=== PATIENT | male | born 1955 | race African-American/Black ===

== ENCOUNTER 2017-11-07 04:20 | Inpatient (IN) | payer MEDICARE, OTHER ==
[2017-11-07 05:53] LABS: #Basophils 0.1 thou/uL (0.0-0.2); #Eosinphils 0.4 thou/uL (0.0-0.7); #Lymphocytes 1.4 thou/uL (1.20-3.40); #Monocytes 0.8 thou/uL (0.11-0.59); #Neutrophils 4.4 thou/uL (1.40-6.50); %Basophils 0.9 % (0.0-1.0); %Eosinophils 5.2 % (0.0-10.0); %Lymphocytes 20.1 % (21.0-51.0); %Monocytes 11.4 % (0.0-10.0); %Neutrophils 62.4 % (42.0-75.0); Hemoglobin 13.7 g/dL (14.0-18.0); Mean Corpuscular HGB CONC 32.5 g/dL (32.0-36.0); Mean Corpuscular Hemoglobin 28.3 pg (27.0-31.0); Mean Corpuscular Volume 86.9 fl (80.0-94.0); Mean Platelet Volume 8.6 fL (7.4-10.4); Platelet Count 218 thou/uL (130-400); RBC Distribution Width 12.5 % (11.5-14.5); Red Blood Cell (RBC) Count 4.83 mill/uL (4.70-6.10)
[2017-11-07 06:06] LABS: ALT (SGPT) 21 U/L (8-55); AST (SGOT) 18 U/L (5-34); Albumin 4.2 g/dL (3.4-4.8); Alkaline Phosphatase 84 U/L (40-150); Anion Gap 13 mmol/L (10-20); BUN (Urea Nitrogen) 19 mg/dL (8.4-25.7); Bilirubin, Total 0.2 mg/dL (0.2-1.2); Calc. Creatinine Clearance 0 mL/min (70-130); Calcium 9.2 mg/dL (7.8-10.44); Carbon Dioxide 23 mmol/L (23-31); Chloride 106 mmol/L (98-107); Estimated GFR-MDRD 76; Globulin 3.3 g/dL (2.4-3.5); Glucose 115 mg/dL (80-115); Potassium 4.3 mmol/L (3.5-5.1); Protein, Total 7.5 g/dL (5.8-8.1); Sodium 138 mmol/L (136-145)
[2017-11-07] MEDS ORDERED: methylPREDNISolone Sod Succ/PF 125 MG/2 ML VIAL ONE (06:40)
[2017-11-07 06:41] LABS: CKMB 2.4 ng/mL (0-6.6); Troponin I Less than 0.010 ng/mL (< 0.028)
[2017-11-07] MEDS ORDERED: Azithromycin 500 MG VIAL ONE (08:33)
[2017-11-07] MEDS ORDERED: cefTRIAXone\\ROCEPHIN 2 GM in Sodium Chloride 0.9% 100 ML IVPB SCH (09:00)
--- NOTE | 2017-11-07 09:23 | CT ---
PRELIMINARY REPORT/[facility]/EMERGENCY AFTER HOURS PROCEDURE: EXAM: CT Angiography Chest With Intravenous Contrast CLINICAL HISTORY: 62 years old, male; Signs and symptoms; Dyspnea and shortness of breath; Patient HX: M62 presents to ed C/O SOB, chest tightness and wheezing x4 days. Pt reports HX of these symptoms before but it's bee n a long time. Pt reports chills, myalgias, and sinus pain. Pmhx includes asthma, dm, HTN, and hypoth yroidism. TECHNIQUE: Axial computed tomographic angiography images of the chest with intravenous contrast using pulmonary embolism protocol. COMPARISON: No relevant prior studies available. FINDINGS: Pulmonary arteries: Basilar motion artifact more prominent on the left. No discrete pulmonary embolus identified. Aorta: No acute findings. No thoracic aortic aneurysm. Lungs: Mild bronchial wall thickening and scattered bronchiolar mucous plugging in the left lung and minimally in the right lower lobe. Few patchy ground glass opacities in the left upper lobe. Hazy pallavi undglass and reticulonodular densities in the superior segment of the right lower lobe. No mass or co nsolidation. Pleural space: No significant effusion. No pneumothorax. Heart: Unremarkable. Bones/joints: No acute fracture. No dislocation. Soft tissues: Unremarkable. Lymph nodes: Multiple subcentimeter bilateral hilar and few mediastinal lymph nodes. IMPRESSION: Findings suggestive of bronchial inflammation with reticulonodular infiltrate in the right lower lobe . Thank you for allowing us to participate in the care of your patient. Dictated and Authenticated by: Rancho Horne MD 11/07/2017 7:53 AM Central Time ([place] & [place]) FINAL REPORT EMERGENCY AFTER HOURS CT ANGIOGRAM THORAX WITH IV CONTRAST AND 3D RECONSTRUCTIONS: Date: 11/07/17 HISTORY: Dyspnea and shortness of breath. Chest tightness and wheezing for 4 days. Patient also reports chills and myalgias. Past medical history of asthma and hypertension. IMPRESSION: 1. No CT evidence of a pulmonary embolus. 2. Reticulonodular opacities in the right lower lobe, which may be related to infectious or inflamma tory process. 3. Lymphadenopathy in the right hilar region which may be reactive in origin. 4. Emphysematous changes right lung apex with probable mild pleural and parenchymal scarring in the left upper lobe anteriorly. 5. Minimal ground-glass densities in the left upper lobe, which also could be related to infectious or inflammatory process. Findings are in agreement with the preliminary report by Solomon. POS: [facility]
--- NOTE | 2017-11-07 09:31 | RAD ---
PORTABLE AP CHEST: Date: 11/07/17 HISTORY: Congestion for 2 days and cough. COMPARISON: 04/13/17. FINDINGS: Cardiac silhouette and pulmonary vasculature are within normal limits. The lungs are clear. There has been no interval change from the prior study. IMPRESSION: No acute cardiopulmonary process. POS: [facility]
[2017-11-07] MEDS ORDERED: Acetaminophen 325 MG TAB PO PRN ×2 (10:24→14:55)
[2017-11-07] MEDS ORDERED: Ondansetron ODT 4 MG TAB SL PRN (10:24)
[2017-11-07] MEDS ORDERED: Ondansetron HCl/PF 4 MG/2 ML Vial IVP PRN (10:24)
[2017-11-07 10:29] VITALS: BMI 31.6
[2017-11-07] MEDS ORDERED: Dextrose 50% Abboject 50 ML SYRINGE SLOW IVP PRN (14:55)
[2017-11-07] MEDS ORDERED: Senokot 8.6 MG TAB PO PRN (14:55)
[2017-11-07] MEDS ORDERED: Guaifenesin DM 100-10/5 ML UDCUP PO PRN (14:55)
[2017-11-07] MEDS ORDERED: HumaLOG 300 UNITS/3 ML VIAL SC PRN ×2 (14:55)
[2017-11-07] MEDS ORDERED: traMADol HCl 50 MG TAB PO PRN (14:55)
[2017-11-07] MEDS ORDERED: Dextrose 5% in Water 1,000 ML IV PRN (14:55)
[2017-11-07] MEDS: metFORMIN 500 MG TAB PO SCH (16:31)
[2017-11-07] MEDS ORDERED: ISOVUE-370 76%-LOCM 1 ML ONE (16:45)
--- NOTE | 2017-11-07 16:48 | HP ---
REASON FOR ADMISSION: Pneumonia, acute respiratory failure with hypoxia on arrival. HISTORY OF PRESENT ILLNESS: The patient gives history of feeling congested from last 2-1/2 days. He has had dry coughing spells with no sputum production as well. No fever at home. He has not taken his flu shot for this year. The patient thinks that his [id number]-rjn had some viral symptoms inclu ding cough, sneezing, runny nose when he visited him recently. His is also getting sick at home . He has a history of asthma and uses inhaler once a week barely. No complaints of chest pain or pa lpitations. CURRENT MEDICATIONS: Lisinopril 2.5 mg p.o. daily, metformin 1000 mg p.o. twice daily, levothyroxine daily. ALLERGIES: No known drug allergies. PAST MEDICAL AND SURGICAL HISTORY: History of diabetes mellitus type 2, asthma, hypertension, spine surgery, left hip replacement. PERSONAL HISTORY: Quit smoking 4 years back, prior to which has smoked half pack a day for nearly 15 years. Does not abuse alcohol or drugs. Lives with his . FAMILY HISTORY: Mother at the age of 90 years, has been healthy, of old age. Father at the age of 73 years. He has had history of asthma and [place]. REVIEW OF SYSTEMS: The following complete review of systems was negative, unless otherwise mentioned in the HPI or below: Constitutional: Weight loss or gain, ability to conduct usual activities. Sk in: Rash, itching. Eyes: Double vision, pain. ENT/Mouth: Nose bleeding, neck stiffness, pain, te nderness. Cardiovascular: Palpitations, dyspnea on exertion, orthopnea. Respiratory: Shortness of breath, wheezing, cough, hemoptysis, fever or night sweats. Gastrointestinal: Poor appetite, abdom inal pain, heartburn, nausea, vomiting, constipation, or diarrhea. Genitourinary: Urgency, frequenc y, dysuria, nocturia. Musculoskeletal: Pain, swelling. Neurologic/Psychiatric: Anxiety, depressio n. Allergy/Immunologic: Skin rash, bleeding tendency. PHYSICAL EXAMINATION: GENERAL: The patient is a 62-year-old male who is currently not in any acute distress. VITAL SIGNS: On arrival, blood pressure 146/76, pulse 90 per minute, respiratory rate 22 per minute, temperature 98.7 degrees Fahrenheit, saturating 90% on room air and 92% on 3 liters nasal cannula. NECK: Supple. No elevated JVD. HEENT: Extraocular muscles intact. Pupils reacting to light. Oral cavity mucous membranes are mois t. No exudates or congestion. CARDIOVASCULAR: S1, S2 heard. RESPIRATORY: Air entry 2+ bilateral. Scattered rhonchi plus bilateral, wheezes plus bilaterally. ABDOMEN: Soft, bowel sounds heard. No tenderness, rigidity or guarding. EXTREMITIES: No peripheral edema or calf tenderness. VASCULAR: Peripheral pulses 1+ bilateral. No ischemic ulcerations or gangrene. CENTRAL NERVOUS SYSTEM: No gross focal deficits seen. The patient is alert, awake, oriented x3. PSYCHIATRIC: The patient's mood is euthymic. No hallucinations or delusions. LABORATORY AND X-RAY FINDINGS: CT angio chest done showed no evidence of PE. There are reticulonodu lar opacities seen in right lower lobe. There were also emphysematous changes seen in the right lung apex with likely scarring of left upper lobe anteriorly. There are also minimal ground glass densit ies seen in the left upper lobe, which could reflect an infectious or inflammatory process. Electrol ytes are stable. BUN 19, creatinine 1.1, glucose 115. Liver enzymes are within normal limits. One set of cardiac enzymes were negative. Albumin is 4.2. White count of 7, H and H 13 and 42, platelet count 218 with 62% neutrophils, MCV is 86. EKG done shows normal sinus rhythm at 88 beats per minut e. There is also left anterior fascicular block seen. CLINICAL IMPRESSION AND PLAN: The patient will be admitted to medical floor for pneumonia, asthma ex acerbation, acute respiratory failure with hypoxia. The patient will be on DuoNeb q.6 hourly, Levaqu in 750 mg daily. We will obtain a viral PCR for respiratory pathogens. We will continue his metform in at 500 mg twice daily, lisinopril 2.5 mg daily, Synthroid as before. We will also place him on Ta miflu in view of his viral prodrome that initiated this current flareup of his asthma and pneumonia. We will continue to closely monitor him on medical floor.
[2017-11-07] MEDS ORDERED: Oseltamivir 75 MG CAP PO SCH (21:00)
[2017-11-07] MEDS: Famotidine 20 MG TAB PO SCH (22:03)
[2017-11-08 04:51] LABS: #Eosinphils 0.1 thou/uL (0.0-0.7); #Lymphocytes 2.1 thou/uL (1.20-3.40); #Monocytes 1.2 thou/uL (0.11-0.59); #Neutrophils 6.7 thou/uL (1.40-6.50); %Basophils 0.1 % (0.0-1.0); %Eosinophils 0.9 % (0.0-10.0); %Lymphocytes 20.9 % (21.0-51.0); %Monocytes 12.1 % (0.0-10.0); %Neutrophils 65.9 % (42.0-75.0); Hemoglobin 12.8 g/dL (14.0-18.0); Mean Corpuscular HGB CONC 32.8 g/dL (32.0-36.0); Mean Corpuscular Hemoglobin 28.6 pg (27.0-31.0); Mean Corpuscular Volume 87.4 fl (80.0-94.0); Mean Platelet Volume 8.1 fL (7.4-10.4); Platelet Count 202 thou/uL (130-400); RBC Distribution Width 12.5 % (11.5-14.5); Red Blood Cell (RBC) Count 4.46 mill/uL (4.70-6.10); White Blood Cell (WBC) Count 10.1 thou/uL (4.8-10.8)
[2017-11-08 05:10] LABS: Anion Gap 12 mmol/L (10-20); BUN (Urea Nitrogen) 14 mg/dL (8.4-25.7); Calc. Creatinine Clearance 140 mL/min (70-130); Calcium 9.6 mg/dL (7.8-10.44); Carbon Dioxide 27 mmol/L (23-31); Chloride 103 mmol/L (98-107); Estimated GFR-MDRD Greater than 90; Glucose 122 mg/dL (80-115); Potassium 3.7 mmol/L (3.5-5.1); Sodium 138 mmol/L (136-145)
[2017-11-08] MEDS: Levothyroxine Sodium 100 MCG TAB PO SCH (05:57)
[2017-11-08] MEDS: Famotidine 20 MG TAB PO SCH ×2 (09:19→20:55)
[2017-11-08] MEDS: metFORMIN 500 MG TAB PO SCH ×2 (09:19→17:21)
[2017-11-08] MEDS: Lisinopril 2.5 MG TAB PO SCH (09:20)
[2017-11-08] MEDS: Enoxaparin Sodium 40 MG/0.4 ML SYRINGE SC SCH (09:20)
--- NOTE | 2017-11-08 11:55 | PDOC.PN ---
- Subjective Encounter Start Date: 11/08/17 Encounter Start Time: 08:25 Subjective: breathing better, no sob - Objective Resuscitation Status: Resuscitation Status FULL:Full Resuscitation MAR Reviewed: Yes Vital Signs & Weight: Vital Signs (12 hours) Temp Pulse Resp BP BP Pulse Ox 11/08/17 09:20 80 126/78 11/08/17 08:00 97.7 F 80 20 126/78 92 L 11/08/17 07:31 79 16 95 11/08/17 04:49 97.9 F 77 16 161/71 H 94 L 11/08/17 01:22 87 16 11/08/17 00:00 97.9 F 80 20 136/77 94 L Weight Weight 260 lb Result Diagrams: 11/08/17 04:37 11/08/17 04:37 Additional Labs: Accuchecks 11/08/17 11/08/17 11/07/17 11:14 05:18 21:02 POC Glucose 141 H 115 H 177 H 11/07/17 16:23 POC Glucose 188 H Phys Exam - Physical Examination HEENT: PERRLA, moist MMs Neck: no JVD, supple Respiratory: no wheezing, no rales rhonchi+ Cardiovascular: RRR, no significant murmur Gastrointestinal: soft, non-tender, positive bowel sounds Musculoskeletal: no edema, pulses present Neurological: non-focal, moves all 4 limbs Psychiatric: A&O x 3 Dx/Plan (1) PNA (pneumonia) Code(s): J18.9 - PNEUMONIA, UNSPECIFIED ORGANISM Status: Acute Qualifiers: Pneumonia type: due to unspecified organism (2) DM type 2 (diabetes mellitus, type 2) Status: Chronic Qualifiers: Diabetes mellitus complication status: with unspecified complications Diabetes mellitus termite technician insulin use: without termite technician use Qualified Code( s): E11.8 - Type 2 diabetes mellitus with unspecified complications (3) Asthma Code(s): J45.909 - UNSPECIFIED ASTHMA, UNCOMPLICATED Status: Acute Qualifiers: Asthma severity: mild Asthma complication type: with acute exacerbation (4) HTN (hypertension) Code(s): I10 - ESSENTIAL (PRIMARY) HYPERTENSION Status: Chronic Qualifiers: Hypertension type: essential hypertension Qualified Code(s): I10 - Essential (primary) hypertension - Plan viral pcr is +ve for rhinovirus which might have triggered current events -: is on levaquin -: nebs, no steroids for now -: to ambulate in hallway -: dc plan in am * . Review of Systems - Medications/Allergies Allergies/Adverse Reactions: Allergies Allergy/AdvReac Type Severity Reaction Status Date / Time No Known Allergies Allergy Verified 11/07/17 10:31 Medications: Current Medications Acetaminophen (Tylenol) 650 mg PO Q4H PRN PRN Reason: Headache/Fever or Pain Albuterol/Ipratropium (Duoneb) 3 ml NEB [id number] [facility] Last Admin: 11/08/17 07:31 Dose: 3 ml Dextrose/Water (Dextrose 50%) 25 gm SLOW IVP PRN PRN PRN Reason: Hypoglycemia Enoxaparin Sodium (Lovenox) 40 mg SC 0900 [facility] Last Admin: 11/08/17 09:20 Dose: 40 mg Famotidine (Pepcid) 20 mg PO BID [facility] Last Admin: 11/08/17 09:19 Dose: 20 mg Glucagon (Glucagon) 1 mg IM PRN PRN PRN Reason: Hypoglycemia Guaifenesin/Dextromethorphan (Robitussin Dm) 15 ml PO Q4H PRN PRN Reason: Cough Dextrose/Water (D5w) 1,000 mls @ 0 mls/hr IV .Q0M PRN; As Directed PRN Reason: Hypoglycemia Levofloxacin 750 mg/ Device 150 mls @ 100 mls/hr IVPB 1600 [facility] Last Admin: 11/07/17 16:31 Dose: 150 mls Insulin Human Lispro (Humalog) 0 units SC .MODERATE SLIDING SC PRN PRN Reason: Moderate Correctional Scale Insulin Human Lispro (Humalog) 0 units SC .BEDTIME SLIDING SC PRN PRN Reason: Bedtime Correctional Scale Levothyroxine Sodium (Synthroid) 100 mcg PO 0600 [facility] Last Admin: 11/08/17 05:57 Dose: 100 mcg Lisinopril (Zestril) 2.5 mg PO DAILY [facility] Last Admin: 11/08/17 09:20 Dose: 2.5 mg Metformin HCl (Glucophage) 500 mg PO BID[facility] Last Admin: 11/08/17 09:19 Dose: 500 mg Senna (Senokot) 2 tab PO HSPRN PRN PRN Reason: Constipation Tramadol HCl (Ultram) 50 mg PO QID PRN PRN Reason: Moderate Pain (4-6) Last Admin: 11/08/17 02:23 Dose: 50 mg
[2017-11-09] MEDS: Levothyroxine Sodium 100 MCG TAB PO SCH (05:14)
[2017-11-09] MEDS: Lisinopril 2.5 MG TAB PO SCH (09:03)
[2017-11-09] MEDS: metFORMIN 500 MG TAB PO SCH (09:03)
[2017-11-09] MEDS: Famotidine 20 MG TAB PO SCH (09:03)
[2017-11-09] MEDS: Enoxaparin Sodium 40 MG/0.4 ML SYRINGE SC SCH (09:03)
--- NOTE | 2017-11-09 13:37 | PDOC.PN ---
- Subjective Encounter Start Date: 11/09/17 Encounter Start Time: 07:40 Subjective: feels good -: no sob, is amb in hallway, spo2 96% on room air - Objective Resuscitation Status: Resuscitation Status FULL:Full Resuscitation MAR Reviewed: Yes Vital Signs & Weight: Vital Signs (12 hours) Temp Pulse Resp BP BP Pulse Ox 11/09/17 09:03 76 122/76 11/09/17 08:15 76 14 96 11/09/17 08:00 97.8 F 76 20 122/76 100 11/09/17 05:00 98.3 F 76 17 135/76 96 Weight Weight 260 lb I&O: 11/08/17 11/09/17 11/10/17 06:59 06:59 06:59 Intake Total 2180 Balance 2180 Result Diagrams: 11/08/17 04:37 11/08/17 04:37 Additional Labs: Accuchecks 11/09/17 11/09/17 11/08/17 11:45 05:16 20:55 POC Glucose 99 126 H 123 H 11/08/17 16:51 POC Glucose 160 H Phys Exam - Physical Examination HEENT: PERRLA, moist MMs Neck: no JVD, supple Respiratory: no wheezing, no rales Cardiovascular: RRR, no significant murmur Gastrointestinal: soft, non-tender, positive bowel sounds Musculoskeletal: no edema, pulses present Neurological: non-focal, moves all 4 limbs Psychiatric: A&O x 3 Dx/Plan (1) PNA (pneumonia) Code(s): J18.9 - PNEUMONIA, UNSPECIFIED ORGANISM Status: Acute Qualifiers: Pneumonia type: due to unspecified organism (2) DM type 2 (diabetes mellitus, type 2) Status: Chronic Qualifiers: Diabetes mellitus complication status: with unspecified complications Diabetes mellitus residential insulin use: without residential use Qualified Code( s): E11.8 - Type 2 diabetes mellitus with unspecified complications (3) Asthma Code(s): J45.909 - UNSPECIFIED ASTHMA, UNCOMPLICATED Status: Acute Qualifiers: Asthma severity: mild Asthma complication type: with acute exacerbation (4) HTN (hypertension) Code(s): I10 - ESSENTIAL (PRIMARY) HYPERTENSION Status: Chronic Qualifiers: Hypertension type: essential hypertension Qualified Code(s): I10 - Essential (primary) hypertension - Plan hemostable -: dc pt home -: oral levaquin, alb inhaler * .
--- NOTE | 2017-11-09 14:18 | DIS ---
DATE OF ADMISSION: 11/07/2017 DATE OF DISCHARGE: 11/09/2017 DISCHARGE DISPOSITION: To home. PRIMARY DISCHARGE DIAGNOSES: Pneumonia, resolving; diabetes mellitus, type 2; mild asthma exacerbati on, resolving; hypertension. PROCEDURES DONE DURING HOSPITALIZATION: CT angio chest done, which showed no evidence of pulmonary e mbolus, but had findings suggestive of pneumonia. Blood cultures x2 no growth. Respiratory virus pa jonnathan, PCR done was positive for rhinovirus. DISCHARGE MEDICATIONS: Levaquin 500 mg p.o. daily for another 5 days, albuterol inhaler q.6 hourly p .r.n., Synthroid 100 mcg p.o. daily, lisinopril 2.5 mg p.o. daily, metformin 500 mg p.o. twice daily, and Ultram p.r.n. for pain. ALLERGIES: No known drug allergies. DISCHARGE PLAN: Patient to follow up with primary care physician in 1 week. BRIEF COURSE DURING HOSPITALIZATION: Patient initially came in to ER with complaints of feeling josé ested along with coughing spells. His initial CT angio chest was suspicious for pneumonia. He was a dmitted to medical floor and was placed on IV antibiotics. The patient has known history of asthma a nd had mild flareup as well with initial wheezing, which resolved. His saturations also improved wit h the initial saturations of 90% on room air on arrival in the ER and on discharge was 96% on room ai r. He is ambulating and eating well. The patient has been advised to continue Levaquin for another 5 days. He needs to follow up with his primary care physician in 1 week. Please see a [id number] documentation on [facility] for the day of discharge.
[2017-11-09 17:02] VITALS: BP 122/62; TEMP 97.4
--- NOTE | 2017-11-21 20:20 | EKG ---
Test Reason : Blood Pressure : / mmHG Vent. Rate : 088 BPM Atrial Rate : 088 BPM P-R Int : 146 ms QRS Dur : 090 ms QT Int : 354 ms P-R-T Axes : 079 -57 002 degrees QTc Int : 428 ms Normal sinus rhythm Left anterior fascicular block Abnormal ECG Confirmed by EYAL DOWNING, MARIANN ([id number]), general expeditor JUANITO SUMMERS ([id number]) on 11/21/2017 8:20:25 PM Referred By: Confirmed By:MARIANN BIRCH MD
== END 2017-11-09 13:38 | disposition home or self-care (01) | DRG 193 ==
LOC: ERS 04:20 → T4-B 09:58
PROVIDERS: ADMIT Internal Medicine; ATTEND Internal Medicine
DX: J18.9 Pneumonia, unspecified organism (principal); J96.01 Acute respiratory failure with hypoxia; J45.901 Unspecified asthma with (acute) exacerbation; E11.9 Type 2 diabetes mellitus without complications; Z87.891 Personal history of nicotine dependence; I10 Essential (primary) hypertension; E03.9 Hypothyroidism, unspecified; B97.89 Other viral agents as the cause of diseases classified elsewhere
CPT/HCPCS: 36415; 36416; 71045; 71275; 80048; 80053; 82553; 84484; 85025; 85379; 87040; 87070; 87205; 87633; 93005; 94640; 94760; 96365; 96375; J0456; J0696; J1650; J1956; J2930; J7050; J7620

== ENCOUNTER 2018-02-17 21:45 | Emergency (ER) | payer MEDICARE ==
[2018-02-17 22:10] LABS: #Basophils 0.1 thou/uL (0.0-0.2); #Eosinphils 0.3 thou/uL (0.0-0.7); #Lymphocytes 2.7 thou/uL (1.20-3.40); #Monocytes 0.7 thou/uL (0.11-0.59); %Basophils 1.1 % (0.0-1.0); %Eosinophils 5.2 % (0.0-10.0); %Monocytes 9.6 % (0.0-10.0); %Neutrophils 44.1 % (42.0-75.0); Hemoglobin 13.5 g/dL (14.0-18.0); Mean Corpuscular HGB CONC 32.7 g/dL (32.0-36.0); Mean Corpuscular Volume 85.6 fl (80.0-94.0); Mean Platelet Volume 8.1 fL (7.4-10.4); Platelet Count 215 thou/uL (130-400); RBC Distribution Width 12.4 % (11.5-14.5); Red Blood Cell (RBC) Count 4.81 mill/uL (4.70-6.10); White Blood Cell (WBC) Count 6.7 thou/uL (4.8-10.8)
[2018-02-17 22:36] LABS: CKMB 1.8 ng/mL (0-6.6); Troponin I Less than 0.010 ng/mL (< 0.028)
[2018-02-17 22:37] LABS: ALT (SGPT) 16 U/L (8-55); AST (SGOT) 20 U/L (5-34); Albumin 4.2 g/dL (3.4-4.8); Alkaline Phosphatase 73 U/L (40-150); Anion Gap 12 mmol/L (10-20); BUN (Urea Nitrogen) 24 mg/dL (8.4-25.7); Bilirubin, Total 0.2 mg/dL (0.2-1.2); CK (CPK) 503 U/L (30-200); Calc. Creatinine Clearance 0 mL/min (70-130); Calcium 9.5 mg/dL (7.8-10.44); Carbon Dioxide 25 mmol/L (23-31); Chloride 101 mmol/L (98-107); Estimated GFR-MDRD 78; Glucose 114 mg/dL (80-115); Potassium 3.5 mmol/L (3.5-5.1); Protein, Total 7.2 g/dL (5.8-8.1); Sodium 134 mmol/L (136-145)
--- NOTE | 2018-02-17 23:00 | CT ---
CT BRAIN: 02/17/2018 PROVIDED CLINICAL HISTORY: Syncope. COMPARISON: None. FINDINGS: The ventricular system appears normal in size and morphology. There is no evidence for intracranial hemorrhage or mass effect. The extracranial soft tissues and osseous structures demonstrate an unrem arkable CT appearance. IMPRESSION: No evidence for intracranial hemorrhage or mass effect. POS: [facility]
--- NOTE | 2018-02-17 23:01 | RAD ---
PORTABLE CHEST: 02/17/2018 PROVIDED CLINICAL HISTORY: Syncope. COMPARISON: 11/07/2017 FINDINGS: The cardiac and mediastinal silhouette are within normal limits. The lungs appear clear. There is n o pleural fluid or pneumothorax apparent. IMPRESSION: No evidence for an acute cardiopulmonary process. POS: [facility]
== END 2018-02-17 23:49 | disposition home or self-care (01) ==
LOC: ERS 21:45
DX: R55 Syncope and collapse (principal); R25.2 Cramp and spasm; I10 Essential (primary) hypertension; E11.9 Type 2 diabetes mellitus without complications; E03.9 Hypothyroidism, unspecified; N40.0 Benign prostatic hyperplasia without lower urinary tract symptoms; Z79.4 Long term (current) use of insulin; Z79.84 Long term (current) use of oral hypoglycemic drugs; Z79.899 Other long term (current) drug therapy
CPT/HCPCS: 36415; 70450; 71045; 80053; 82550; 82553; 84484; 85025; 93005; 96360

== ENCOUNTER 2018-10-23 15:08 | Emergency (ER) | payer MEDICARE ==
[~2018-10-23 15:08] MED LIST: ISOVUE-370 76%-LOCM 1 ML ONE
[2018-10-23 15:34] LABS: Bilirubin Negative (Negative); Blood, Urine Negative (Negative); Clarity CLEAR (Clear); Glucose, Urine (Dipstick) Negative (Negative); Leukocyte Negative (Negative); Nitrite Negative (Negative); Protein, Urine (Dipstick) Negative (Neg-Trace); Specific Gravity, Urine 1.012 (1.002-1.036); Urobilinogen 0.2 mg/dL (0.2-1.0)
[2018-10-23 15:35] LABS: #Basophils 0.1 thou/uL (0.0-0.2); #Eosinphils 0.1 thou/uL (0.0-0.7); #Lymphocytes 1.9 thou/uL (1.20-3.40); #Monocytes 0.7 thou/uL (0.11-0.59); #Neutrophils 3.9 thou/uL (1.40-6.50); %Basophils 1.1 % (0.0-1.0); %Eosinophils 1.5 % (0.0-10.0); %Lymphocytes 28.2 % (21.0-51.0); %Monocytes 10.4 % (0.0-10.0); %Neutrophils 58.9 % (42.0-75.0); Hemoglobin 14.5 g/dL (14.0-18.0); Mean Corpuscular Hemoglobin 27.9 pg (27.0-31.0); Mean Corpuscular Volume 87.2 fL (78.0-98.0); Platelet Count 224 thou/uL (130-400); RBC Distribution Width 12.4 % (11.5-14.5); Red Blood Cell (RBC) Count 5.21 mill/uL (4.70-6.10); White Blood Cell (WBC) Count 6.7 thou/uL (4.8-10.8)
[2018-10-23 16:02] LABS: ALT (SGPT) 17 U/L (8-55); AST (SGOT) 18 U/L (5-34); Albumin 4.5 g/dL (3.4-4.8); Alkaline Phosphatase 82 U/L (40-150); Anion Gap 13 mmol/L (10-20); BUN (Urea Nitrogen) 14 mg/dL (8.4-25.7); Bilirubin, Total 0.4 mg/dL (0.2-1.2); Calc. Creatinine Clearance 0 mL/min (70-130); Calcium 10.1 mg/dL (7.8-10.44); Carbon Dioxide 28 mmol/L (23-31); Chloride 102 mmol/L (98-107); Estimated GFR-MDRD 72; Globulin 3.3 g/dL (2.4-3.5); Glucose 76 mg/dL (80-115); Lipase 27 U/L (8-78); Potassium 4.3 mmol/L (3.5-5.1); Protein, Total 7.8 g/dL (5.8-8.1); Sodium 139 mmol/L (136-145)
[2018-10-23] MEDS ORDERED: Lidocaine Viscous Sol 2% 15 ml UD Cup ONE (16:21)
[2018-10-23] MEDS ORDERED: Mag-Al 1200 mg/1200 mg/30 ML UDCUP ONE (16:21)
[2018-10-23] MEDS ORDERED: Aspirin Chewable 81 MG TAB ONE (16:21)
--- NOTE | 2018-10-23 17:18 | RAD ---
CHEST ONE VIEW: 10/23/18 HISTORY: Chest pain and abdominal pain. COMPARISON: 02/17/18. FINDINGS: The cardiac silhouette is magnified by projection. Pulmonary vasculature is upper limits of normal. M ediastinum is midline. No lobar consolidation or evidence of pneumothorax. No evidence of free subdia phragmatic gas. IMPRESSION: No active cardiopulmonary abnormalities are demonstrated. POS: [facility]
--- NOTE | 2018-10-23 18:13 | CT ---
CT ABDOMEN AND PELVIS WITH IV CONTRAST: 10/23/18 HISTORY: Abdominal pain. COMPARISON: 04/13/17. FINDINGS: Lung bases are clear. Renal cysts are similar in appearance to the prior study. Scattered, nonenlarge d but slightly prominent lymph nodes throughout the mesentery are similar in appearance to the prior study. No inflammation is apparent. No free air or free fluid. Appendix not inflamed. Degenerative an d postoperative changes of the lumbar spine. IMPRESSION: Chronic type findings are stable. No acute inflammation or other significant abnormalities to explain the abdominal pain. POS: [facility]
== END 2018-10-23 18:01 | disposition home or self-care (01) ==
LOC: ERS 15:08
DX: K29.70 Gastritis, unspecified, without bleeding (principal); E03.9 Hypothyroidism, unspecified; I10 Essential (primary) hypertension; E11.9 Type 2 diabetes mellitus without complications
CPT/HCPCS: 36415; 71045; 74177; 80053; 81003; 83690; 83880; 84484; 85025; 93005; 96360; 96361; Q9966

== ENCOUNTER 2019-10-22 16:03 | Inpatient (IN) | payer MEDICARE ==
[~2019-10-22 16:03] MED LIST changes: -ISOVUE-370 76%-LOCM 1 ML ONE; +Iopamidol-370 76% 500 ML 1 ML ONE
--- NOTE | 2019-10-22 16:54 | RAD ---
FOUR VIEWS RIGHT KNEE: 10/22/19 HISTORY: Recent knee replacement one week ago. Pain and swelling to surgical site. COMPARISON: None. FINDINGS: There are postsurgical changes related to right total knee prosthesis. No hardware complications seen . Skin clips seen anterior to the knee. There is evidence of a moderate to large joint effusion. Subc utaneous soft tissue swelling is also seen about the knee. There are osseous densities seen posterior to the knee which may be related to the recent postsurgical changes. IMPRESSION: 1. Postsurgical changes related to right total knee replacement. 2. Joint effusion and subcutaneous soft tissue swelling about the right knee. 3. Osseous densities posterior to the knee which could be related to the recent postsurgical ricky nges. POS: [facility]
[2019-10-22 17:54] LABS: #Eosinphils 0.5 thou/uL (0.0-0.7); #Lymphocytes 1.9 thou/uL (1.20-3.40); #Neutrophils 7.5 thou/uL (1.40-6.50); %Basophils 0.4 % (0.0-1.0); %Eosinophils 4.4 % (0.0-10.0); %Lymphocytes 16.9 % (21.0-51.0); %Monocytes 9.5 % (0.0-10.0); %Neutrophils 68.8 % (42.0-75.0); Mean Corpuscular HGB CONC 31.9 g/dL (32.0-36.0); Mean Corpuscular Volume 84.8 fL (78.0-98.0); Mean Platelet Volume 6.3 fL (7.4-10.4); Platelet Count 535 thou/uL (130-400); RBC Distribution Width 13.3 % (11.5-14.5); Red Blood Cell (RBC) Count 3.71 mill/uL (4.70-6.10); White Blood Cell (WBC) Count 10.9 thou/uL (4.8-10.8)
[2019-10-22] MEDS ORDERED: Morphine 4 MG/ML VIAL ONE ×2 (18:11→22:44)
[2019-10-22] MEDS ORDERED: Ketorolac Tromethamine 30 MG/ML VIAL ONE (18:11)
[2019-10-22] MEDS ORDERED: Ondansetron PF 4 MG/2 ML Vial ONE (18:11)
[2019-10-22 18:15] LABS: ALT (SGPT) 22 U/L (8-55); AST (SGOT) 19 U/L (5-34); Albumin 3.7 g/dL (3.4-4.8); Alkaline Phosphatase 86 U/L (40-110); Anion Gap 13 mmol/L (10-20); BUN (Urea Nitrogen) 13 mg/dL (8.4-25.7); Bilirubin, Total 0.9 mg/dL (0.2-1.2); Calc. Creatinine Clearance 0 mL/min (70-130); Carbon Dioxide 26 mmol/L (23-31); Chloride 99 mmol/L (98-107); Estimated GFR-MDRD Greater than 90; Globulin 2.8 g/dL (2.4-3.5); Glucose 100 mg/dL (80-115); Potassium 4.8 mmol/L (3.5-5.1); Protein, Total 6.5 g/dL (5.8-8.1); Sodium 133 mmol/L (136-145)
--- NOTE | 2019-10-22 19:11 | ULT ---
RIGHT LOWER EXTREMITY VENOUS ULTRASOUND: 10/22/19 HISTORY: Right lower extremity swelling and edema. TECHNIQUE: Multiplanar sanchez scale and color Doppler images were obtained in a right lower extremity venous ultra sound. Spectral analysis of the Doppler waveforms were performed. FINDINGS: The right common femoral vein, profunda femoral vein, superficial femoral vein, and popliteal vein ar e normal in appearance without visible thrombus. These vessels demonstrate normal compression, flow, and augmentation. The posterior tibial vein and greater saphenous vein are also patent. IMPRESSION: No evidence of DVT. POS: [facility]
[2019-10-22] MEDS ORDERED: cefTRIAXone\\ROCEPHIN 2 GM VIAL ONE (20:06)
--- NOTE | 2019-10-22 20:59 | CT ---
CT ANGIOGRAM THORAX WITH IV CONTRAST AND 3-D RECONSTRUCTIONS CLINICAL INDICATION: Shortness of breath. Patient has history of recent knee replacement one week ago. COMPARISON: 11/07/2017 FINDINGS: Pulmonary arteries: There are small filling defects seen in subsegmental right lower lobe pulmonary a rteries with question of an additional filling defect within the distal right main pulmonary artery suggestive of pulmonary emboli. Aorta: Vascular calcifications are seen in the aortic arch. Thoracic aorta is normal in caliber witho ut evidence of an aortic dissection. Lungs: Subsegmental atelectasis is present at the right lung base. There is elevation of the right he midiaphragm. The left lung is clear. No pulmonary nodule, mass, or pleural effusion is identified. Minimal emphysematous changes are seen at the lung apices. Mediastinum: No enlarged lymph nodes are seen by CT size criteria. Thyroid gland: Not well assessed on this exam. Osseous structures: Mild degenerative changes in the spine. No suspicious lytic or sclerotic osseous lesions are identified. Chest wall: No abnormality visualized. Upper abdomen: Hypodense lesions are seen in the superior pole right kidney also seen on CT abdomen o n 10/23/2018 and likely reflective of renal cysts. Moderate amount retained fecal material seen in the visualized colon in the upper abdomen. IMPRESSION: 1. Small subsegmental right lower lobe pulmonary emboli is suggestion of a small pulmonary involving the distal right main pulmonary artery. 2. Elevation right hemidiaphragm with volume loss right lung base. 3. Right renal cysts. 4. Above findings discussed Dr. Hill in the emergency department on 10/22/2019 at 2056 hours
[2019-10-22] MEDS ORDERED: Enoxaparin Sodium 30 MG/0.3 ML SYRINGE ONE (21:09)
[2019-10-22] MEDS ORDERED: Enoxaparin Sodium 100 MG/ML SYRINGE ONE (21:09)
[2019-10-22 22:16] LABS: Troponin I Less than 0.010 ng/mL (< 0.028)
[2019-10-22] MEDS ORDERED: Morphine 2 MG/ML SYRINGE SLOW IVP PRN (23:00)
[2019-10-22] MEDS ORDERED: Ondansetron ODT 4 MG TAB SL PRN (23:01)
[2019-10-22] MEDS ORDERED: Lactated Ringer's 1,000 ML IV SCH (23:01)
[2019-10-22] MEDS ORDERED: Ondansetron PF 4 MG/2 ML Vial IVP PRN (23:01)
[2019-10-23 01:04] LABS: Troponin I Less than 0.010 ng/mL (< 0.028)
[2019-10-23] MEDS ORDERED: Ondansetron PF 4 MG/2 ML Vial IVP PRN (01:06)
[2019-10-23] MEDS ORDERED: Guaifenesin DM 100-10/5 ML UDCUP PO PRN (01:06)
[2019-10-23] MEDS ORDERED: Dextrose 5% in Water 1,000 ML IV PRN (01:06)
[2019-10-23] MEDS ORDERED: Bisacodyl 10 MG SUPP PR PRN (01:06)
[2019-10-23] MEDS ORDERED: traMADol HCl 50 MG TAB PO PRN (01:06)
[2019-10-23] MEDS ORDERED: HumaLOG 300 UNITS/3 ML VIAL SC PRN ×2 (01:06)
[2019-10-23] MEDS ORDERED: Acetaminophen 325 MG TAB PO PRN (01:06)
[2019-10-23] MEDS ORDERED: PROVENTIL INHALER 6.7 G (200 INHALATIONS) INH PRN (01:06)
[2019-10-23] MEDS ORDERED: Dextrose 50% Abboject 50 ML SYRINGE SLOW IVP PRN (01:06)
--- NOTE | 2019-10-23 01:41 | HP ---
REASON FOR ADMISSION: PE. HISTORY OF PRESENTING ILLNESS: The patient gives history of having right total knee replacement done at [facility] on the of this month. He went home on the and was ambulating well. This was done by Dr. Matthews. From last 2 days, the pain in his right knee has increased. He has been taking [place] and Ultram with no relief. Despite all this, the patient has been walking with his rolling walker. He has felt a little short of breath. As this continued, the patient finally made it to emergency room. He has no cough or expectoration. No complaints of fever. No bleeding per rectum. His entire right lower extremity is also swollen from last 3 days, which has been progressively getting worse per patient. PAST MEDICAL AND SURGICAL HISTORY: Hypertension; diet-controlled diabetes; benign prostatic hypertrophy; right total knee replacement done on 10/11/2019 at [facility]; prior colonoscopies x2, no malignancy noted, but has had polyps removed; left hip replacement; spine surgery in 2013. CURRENT MEDICATIONS: The patient has been taking, 1. Aspirin 81 mg twice daily. 2. [place] p.r.n. for pain. 3. Ultram p.r.n. for pain. 4. Lisinopril 2.5 mg p.o. daily. 5. Synthroid 100 mcg p.o. daily. 6. Albuterol inhaler q.6 hourly p.r.n. 7. Flomax 0.4 mg daily. 8. Oxybutynin daily. 9. Finasteride 5 mg daily. ALLERGIES: NO KNOWN DRUG ALLERGIES. PERSONAL HISTORY: Does not abuse alcohol or drugs. No history of smoking. FAMILY HISTORY: Mother at the age of 90. She had history of pancreatic cancer. Father at the age of 73. He has had history of asthma and had [place]. The patient lives with his . CODE STATUS: Full. Power of state attorney is his REVIEW OF SYSTEMS: CONSTITUTIONAL: Negative for weight loss or gain, ability to conduct usual activities. SKIN: Negative for rash, itching. EYES: Negative for double vision, pain. ENT/MOUTH: Negative for nose bleeding, neck stiffness, pain, tenderness. CARDIOVASCULAR: Negative for palpitations, dyspnea on exertion, orthopnea. RESPIRATORY: Negative for shortness of breath, wheezing, cough, hemoptysis, fever or night sweats. GASTROINTESTINAL: Negative for poor appetite, abdominal pain, heartburn, nausea , vomiting, constipation, or diarrhea. GENITOURINARY: Negative for urgency, frequency, dysuria, nocturia. MUSCULOSKELETAL: Negative for pain, swelling. NEUROLOGIC/PSYCHIATRIC: Negative for anxiety, depression. ALLERGY/IMMUNOLOGIC: Negative for skin rash, bleeding tendency. PHYSICAL EXAMINATION: GENERAL: The patient is a 64-year-old male, who is currently not in any acute distress. VITAL SIGNS: Blood pressure 144/76, pulse 114 per minute, respiratory rate 18 per minute, temperature 98.2 degrees Fahrenheit, saturating 97% on room air. NECK: Supple. No elevated JVD. HEENT: Eyes; extraocular muscles intact. Pupils reacting to light. Oral cavity; mucous membranes are moist. No exudates or congestion. CARDIOVASCULAR SYSTEM: S1, S2 heard. Regular rhythm. RESPIRATORY SYSTEM: Air entry 2+ bilateral. No rales or rhonchi. ABDOMEN: Soft. Bowel sounds heard. No tenderness, rigidity, or guarding. EXTREMITIES: Right lower extremity is swollen. His right knee surgical dressing is soaked. No calf tenderness. Left lower extremity; there is no edema. Peripheral pulses are 2+ bilateral. No ischemic ulcerations or gangrene. CENTRAL NERVOUS SYSTEM: No gross focal deficits noted. The patient is alert awake, and oriented well. PSYCHIATRIC SYSTEM: Patient's mood is euthymic. No hallucinations or delusions. LABORATORY DATA: White count of 10, H and H of 10 and 31, platelet count 535, MCV is 84 with 68% neutrophils. D-dimer is 4.24. Electrolytes stable. BUN 13, creatinine 0.9, serum glucose 100. Liver enzymes within normal limits. Troponin x3 negative. CRP is 11.5. Albumin is 3.7. Right lower extremity ultrasound venous Doppler done showed no evidence of DVT. CT angio chest done showed small subsegmental right lower lobe pulmonary emboli. A 4-view right knee x-ray done showed postsurgical changes. There is joint effusion with subcutaneous soft tissue swelling around the right knee. CLINICAL IMPRESSION AND PLAN: The patient will be admitted to telemetry for pulmonary embolus with recent right total knee replacement. His right lower extremity is swollen, likely has proximal deep vein thrombosis, which might have gone to his lungs, although his ultrasound venous Doppler is negative. He has received a full-dose Lovenox in the ER and will continue at 130mg sc twice daily from morning. We will consult Dr. Rea who is on-call for Dr. Matthews and Dr. Rosenberg for Pulmonology. We will hold off his metformin for today and restart it from tomorrow due to contrast given for CT angio. He will be on moderate Humalog coverage for now; morphine, Ultram, and [place] p.r.n. for pain; will continue home dose of lisinopril and Synthroid as before. We will also continue Flomax, oxybutynin, and finasteride. We will continue to closely monitor him on telemetry. The patient can be safely transferred to medical floor after he receives his morning dose of Lovenox. Likely, he will be switched over to Eliquis or Xarelto once pulmonology consultation has been obtained. Job ID: [id number] MTDD
[2019-10-23 01:56] VITALS: BMI 36.5
[2019-10-23] MEDS: Morphine 2 MG/ML SYRINGE SLOW IVP PRN ×5 (03:42→21:07)
[2019-10-23] MEDS: Levothyroxine Sodium 100 MCG TAB PO SCH (03:42)
[2019-10-23 04:50] LABS: #Eosinphils 0.4 thou/uL (0.0-0.7); #Lymphocytes 2.4 thou/uL (1.20-3.40); #Monocytes 0.8 thou/uL (0.11-0.59); #Neutrophils 7.4 thou/uL (1.40-6.50); %Basophils 0.2 % (0.0-1.0); %Eosinophils 4.1 % (0.0-10.0); %Lymphocytes 21.3 % (21.0-51.0); %Monocytes 7.2 % (0.0-10.0); %Neutrophils 67.3 % (42.0-75.0); Hemoglobin 9.4 g/dL (14.0-18.0); Mean Corpuscular HGB CONC 31.7 g/dL (32.0-36.0); Mean Corpuscular Volume 84.9 fL (78.0-98.0); Mean Platelet Volume 6.6 fL (7.4-10.4); Platelet Count 514 thou/uL (130-400); RBC Distribution Width 13.5 % (11.5-14.5)
[2019-10-23 05:14] LABS: Anion Gap 11 mmol/L (10-20); BUN (Urea Nitrogen) 12 mg/dL (8.4-25.7); Calc. Creatinine Clearance 164 mL/min (70-130); Calcium 8.8 mg/dL (7.8-10.44); Carbon Dioxide 26 mmol/L (23-31); Chloride 97 mmol/L (98-107); Estimated GFR-MDRD Greater than 90; Glucose 149 mg/dL (80-115); Potassium 4.1 mmol/L (3.5-5.1); Sodium 130 mmol/L (136-145)
[2019-10-23] MEDS: HYDROcodone/Acetaminophen 5/325 mg Tablet PO PRN ×3 (08:31→23:04)
[2019-10-23] MEDS: Famotidine 20 MG TAB PO SCH ×2 (08:31→21:06)
[2019-10-23] MEDS: Lisinopril 2.5 MG TAB PO SCH (08:32)
[2019-10-23] MEDS: Oxybutynin 5 MG TAB PO SCH (08:32)
[2019-10-23] MEDS: Tamsulosin HCl 0.4 MG CAP PO SCH (08:32)
[2019-10-23] MEDS: Enoxaparin Sodium 30 MG/0.3 ML SYRINGE SC SCH ×2 (08:33→21:06)
[2019-10-23] MEDS: Finasteride 5 MG TAB PO SCH (08:33)
[2019-10-23] MEDS: Enoxaparin Sodium 100 MG/ML SYRINGE SC SCH ×2 (08:33→21:07)
[2019-10-23] MEDS: Senokot S 8.6-50 MG TAB PO PRN (08:36)
--- NOTE | 2019-10-23 09:28 | CON ---
DATE OF CONSULTATION: CHIEF COMPLAINT: Fever. HISTORY OF PRESENT ILLNESS: Mr. Menezes is a 64-year-old male, who underwent a total knee arthroplasty of the right knee approximately 1 week ago at the [facility] with Dr. Braxton Matthews. The patient did fine initially. He developed shortness of breath yesterday. He started having fevers. He had increased swelling of his right leg as well. He presents to the emergency department. I was consulted to evaluate his leg. He has been found to have a small pulmonary embolism on CT of his chest. Ultrasound of the leg has not shown DVT. He has been started on Lovenox. He is resting comfortably in the hospital, but currently. ALLERGIES: NO KNOWN DRUG ALLERGIES. REVIEW OF SYSTEMS: Positive for right knee pain and swelling. Otherwise, negative 10-point review of systems. PAST MEDICAL HISTORY: 1. Hypertension. 2. Diabetes. 3. BPH. PAST SURGICAL HISTORY: 1. Left total hip arthroplasty. 2. Previous spine surgery. 3. Right total knee arthroplasty. 4. Previous colonoscopies. MEDICATIONS: 1. Aspirin b.i.d. 2. [place]. 3. Ultram. 4. Lisinopril. 5. Synthroid. 6. Albuterol. 7. Flomax. 8. Oxybutynin. 9. Finasteride. FAMILY MEDICAL HISTORY: Noncontributory. SOCIAL HISTORY: The patient denies tobacco, alcohol, or drug use. IMAGING STUDIES: X-rays of the right knee demonstrate a total knee arthroplasty which is intact without evidence of complication. The patient has a vascular ultrasound which is negative for lower extremity DVT. He has a chest CTA which demonstrates small right-sided pulmonary embolism. PHYSICAL EXAMINATION: VITAL SIGNS: Temperature is 97.9, pulse is 79, respiratory rate is 18, oxygen saturation is 94%, blood pressure is 101/51. GENERAL: The patient is alert and oriented, sitting upright, in no apparent distress. HEENT: Normocephalic and atraumatic. RESPIRATORY: Breathing comfortably. ABDOMEN: Soft, nontender, nondistended. MUSCULOSKELETAL: The patient's right lower extremity has a healing wound. There is appropriate swelling. No significant erythema. He does have edema of the lower extremity from the knee distally. No evidence of infection. He is able to flex and extend the foot and ankle well. Palpable peripheral pulses. IMPRESSION: Recent total knee arthroplasty with pulmonary embolism. PLAN: At this point, the patient has been started on his anticoagulant. This will be guided by the Internal Medicine Service. He will likely need to be anticoagulated for approximately 6 months. Regarding his knee, his wound appears to be intact. There is no sign of infection or other complication. He can follow up at his regularly scheduled visit with Dr. Matthews. I will let Dr. Matthews know he is here in the hospital. He can mobilize weightbear as tolerated and work on range of motion. Job ID: [id number]
--- NOTE | 2019-10-23 12:29 | PRG ---
DATE OF SERVICE: 10/23/2019 SUBJECTIVE: The patient is seen and examined at the bedside. The nurse is present during my visit in the room. The patient complains about the pain in this right knee and swelling. OBJECTIVE: VITAL SIGNS: Blood pressure is 121/61, pulse is 91, temperature is 98.6, respiratory rate is 18, O2 saturation 95% on room air. HEENT: His head is atraumatic and normocephalic. Eyes are PERRLA. Sclerae are nonicteric. Oral mucosa is moist. NECK: Supple. LUNGS: Few crackles at both bases. HEART: S1 and S2 normal. No S3. No S4. ABDOMEN: Soft, obese, nontender. EXTREMITIES: Right knee area status post knee replacement with post operation incision in place dressing. Appropriate swelling and increased temperature of the area postop. NEUROLOGICAL: He is alert and oriented x4. There are no any motor or sensory deficits. LABORATORY DATA: White count of 11.0, hemoglobin of 9.4, hematocrit 29.7, and platelet count is 513. Sodium of 130, potassium 4.1, chloride 97, BUN of 12, creatinine 0.85, and glucose 149. Accu-Cheks ranging from 126 to 141. Calcium is 8.1. Three sets of cardiac enzymes, which is troponin I, within normal limits. IMPRESSION: 1. Acute PE, postop status post total right knee replacement. 2. Hypertension. 3. Diabetes mellitus, type 2. 4. History of BPH. 5. Hyponatremia and hypochloremia, slightly worse than what it was yesterday. This will be followed with the labs daily, and if this is worse, most likely we will restrict his oral fluid intake and do additional testing on that. We will continue current regimen with Lovenox, which is 130 mg twice a day. We will continue Accu-Cheks a.c. and h.s. and moderate sliding scale. We will continue his levothyroxine, Zestril, Flomax, oxybutynin, albuterol p.r.n., finasteride, and famotidine. Job ID: [id number]
[2019-10-23] MEDS: HYDROcodone/Acetaminophen 10/325 mg Tablet PO PRN (19:03)
--- NOTE | 2019-10-23 20:52 | CON ---
DATE OF CONSULTATION: 10/23/2019 REASON FOR CONSULTATION: Pulmonary embolism. HISTORY OF PRESENT ILLNESS: Mr. Menezes is a 64-year-old who came into the hospital yesterday with shortness of breath and chest tightness. He was found to have fairly substantial right-sided pulmonary embolism. His risk factor is a knee replacement that was done within the last 2 weeks on the right. He has no previous history of thromboembolic disease. He has no previous history of bleeding disorders. PAST MEDICAL HISTORY: 1. Hypertension. 2. Diabetes mellitus, type 2. 3. Prostatic hypertrophy. 4. Osteoarthritis. PAST SURGICAL HISTORY: 1. Left hip replacement. 2. Right knee replacement. 3. Colon polypectomy. 4. Spine surgery. 5. Colonoscopy. MEDICATIONS: Prior to admission, 1. Aspirin. 2. [place]. 3. Ultram. 4. Lisinopril. 5. Synthroid. 6. Albuterol. 7. Flomax. 8. Oxybutynin. 9. Finasteride. ALLERGIES: NONE. SOCIAL HISTORY: Nonsmoker. Does not consume alcohol and does not use illicit drugs. He is a retired short contractor field hauling. FAMILY MEDICAL HISTORY: Remarkable for pancreatic cancer, heart disease, and asthma. There is no history of thromboembolism in the family. REVIEW OF SYSTEMS: He has been quite inactive since his surgery. He has had no fever, chills, nausea, vomiting, hematemesis, melena, hematochezia, hematuria, or dysuria. PHYSICAL EXAMINATION: VITAL SIGNS: Temperature 98.6, pulse 91, respirations 18, O2 saturation 95% on room air, and blood pressure 121/61. GENERAL: He is awake and alert, and in no acute distress. HEENT: Pupils react. Sclerae anicteric. Oropharynx clear. NECK: No adenopathy or JVD. LUNGS: Clear without wheezing or rhonchi. CARDIAC: S1 and S2, regular without audible murmur. ABDOMEN: Soft, obese, nontender, nondistended. EXTREMITIES: He has swelling around his right knee. NEUROLOGIC: Grossly intact throughout. LABORATORY DATA: White blood cell count 11, hematocrit 29.7, and platelet count 514. D-dimer is 14.2. Sodium 130, potassium 4.1, chloride 97, CO2 of 26, BUN 12, creatinine 0.8, and glucose 149. IMAGING STUDIES: I reviewed CT individually and agree with the findings of radiologist. A vascular ultrasound demonstrated no evidence of DVT. ASSESSMENT: Pulmonary embolism. Risk factor was recent surgery. He has been immobile since surgery. RECOMMENDATIONS: Anticoagulation for the next 6 months. I would recommend that he be switched to Eliquis 10 mg b.i.d. for 7 days, then 5 mg b.i.d. thereafter to complete 6 months of therapy. He can be switched to Eliquis as early as tomorrow. I have no objection to him going home as early as tomorrow. He can follow up with me in the office in 3 to 6 months. Job ID: [id number]
[2019-10-24] MEDS: HYDROcodone/Acetaminophen 10/325 mg Tablet PO PRN ×4 (03:05→23:48)
[2019-10-24 04:35] LABS: #Basophils 0.1 thou/uL (0.0-0.2); #Eosinphils 0.3 thou/uL (0.0-0.7); #Neutrophils 8.6 thou/uL (1.40-6.50); %Basophils 0.5 % (0.0-1.0); %Eosinophils 2.5 % (0.0-10.0); %Lymphocytes 22.8 % (21.0-51.0); %Neutrophils 66.1 % (42.0-75.0); Hemoglobin 9.7 g/dL (14.0-18.0); Mean Corpuscular HGB CONC 31.3 g/dL (32.0-36.0); Mean Corpuscular Hemoglobin 26.7 pg (27.0-31.0); Mean Corpuscular Volume 85.3 fL (78.0-98.0); Mean Platelet Volume 6.5 fL (7.4-10.4); Platelet Count 543 thou/uL (130-400); RBC Distribution Width 13.4 % (11.5-14.5); Red Blood Cell (RBC) Count 3.65 mill/uL (4.70-6.10)
[2019-10-24 04:57] LABS: Anion Gap 10 mmol/L (10-20); BUN (Urea Nitrogen) 12 mg/dL (8.4-25.7); Calc. Creatinine Clearance 152 mL/min (70-130); Calcium 8.8 mg/dL (7.8-10.44); Carbon Dioxide 26 mmol/L (23-31); Chloride 101 mmol/L (98-107); Estimated GFR-MDRD Greater than 90; Glucose 110 mg/dL (80-115); Potassium 4.1 mmol/L (3.5-5.1); Sodium 133 mmol/L (136-145)
[2019-10-24] MEDS: Levothyroxine Sodium 100 MCG TAB PO SCH (06:14)
[2019-10-24] MEDS: Morphine 2 MG/ML SYRINGE SLOW IVP PRN (06:14)
[2019-10-24 08:14] LABS: Hemoglobin 9.8 g/dL (14.0-18.0); Platelet Count 555 thou/uL (130-400)
[2019-10-24] MEDS: Finasteride 5 MG TAB PO SCH (09:00)
[2019-10-24] MEDS: Lisinopril 2.5 MG TAB PO SCH (09:00)
[2019-10-24] MEDS: Famotidine 20 MG TAB PO SCH ×2 (09:00→20:25)
[2019-10-24] MEDS: Enoxaparin Sodium 30 MG/0.3 ML SYRINGE SC SCH (09:01)
[2019-10-24] MEDS: Tamsulosin HCl 0.4 MG CAP PO SCH (09:01)
[2019-10-24] MEDS: Enoxaparin Sodium 100 MG/ML SYRINGE SC SCH (09:02)
[2019-10-24] MEDS: Senokot S 8.6-50 MG TAB PO PRN (09:04)
[2019-10-24] MEDS: Oxybutynin 5 MG TAB PO SCH (09:06)
--- NOTE | 2019-10-24 10:22 | PRG ---
DATE OF SERVICE: 10/24/2019 SUBJECTIVE: Mr. Menezes is doing well, had no acute complaints. He is not having shortness of breath. OBJECTIVE: VITAL SIGNS: His temperature is 98.5, pulse 83, respirations 19, O2 saturations 96%, and blood pressure 157/71. HEAD AND NECK: Unremarkable. LUNGS: Clear. CARDIAC: S1 and S2, regular. ABDOMEN: Soft. EXTREMITIES: He has edema around his knees at surgical site. LABORATORY DATA: White blood cell count 13, hemoglobin 9.8, hematocrit 30, and platelet count 555. Sodium 133, potassium 4.1, BUN 12, creatinine 0.9, glucose 110. ASSESSMENT: Pulmonary embolism. PLAN: He can be switched over to Eliquis. He needs to remain on this for at least 6 months. He should be stable for hospital discharge by tomorrow. Job ID: [id number]
--- NOTE | 2019-10-24 11:41 | PDOC.HOSPP ---
- Subjective Encounter Date: 10/24/19 Encounter Time: 11:39 Subjective: no further sob or chest pain - Objective Vital Signs & Weight: Vital Signs (12 hours) Temp Pulse Resp BP Pulse Ox 10/24/19 07:32 98.5 F 83 19 157/71 H 96 10/24/19 03:10 98.0 F 90 16 128/60 96 Weight Weight 299 lb 13.259 oz I&O: 10/23/19 10/24/19 10/25/19 06:59 06:59 06:59 Intake Total 560 2400 Output Total 350 2600 Balance 210 -200 Result Diagrams: 10/24/19 07:45 10/24/19 04:03 Additional Labs: Accuchecks 10/24/19 10/24/19 10/23/19 10:31 05:16 20:40 POC Glucose 148 H 110 170 H 10/23/19 16:46 POC Glucose 114 H Hospitalist ROS - Medication Medications: Active Medications Generic Name Dose Route Start Last Admin Trade Name Freq PRN Reason Stop Dose Admin Hydrocodone Bitart/Acetaminophen 1 tab 10/23/19 01:06 10/24/19 09:02 [place] 10/325 PO 1 tab Q4H PRN Administration Moderate Pain (4-6) Hydrocodone Bitart/Acetaminophen 1 tab 10/23/19 01:06 10/23/19 23:04 [place] 5/325 PO 1 tab Q4H PRN Administration Moderate Pain (4-6) Famotidine 20 mg 10/23/19 09:00 10/24/19 09:00 Pepcid PO 20 mg BID HARJINDER Administration Finasteride 5 mg 10/23/19 09:00 10/24/19 09:00 Proscar PO 5 mg DAILY HARJINDER Administration Levothyroxine Sodium 100 mcg 10/23/19 06:00 10/24/19 06:14 Synthroid PO 100 mcg 0600 HARJINDER Administration Lisinopril 2.5 mg 10/23/19 09:00 10/24/19 09:00 Zestril PO 2.5 mg DAILY HARJINDER Administration Morphine Sulfate 2 mg 10/23/19 01:06 10/24/19 06:14 Morphine SLOW IVP 2 mg Q4H PRN Administration Severe Pain (7-10) Oxybutynin Chloride 5 mg 10/23/19 09:00 10/24/19 09:06 Ditropan PO 5 mg DAILY HARJINDER Administration Senna/Docusate Sodium 2 tab 10/23/19 01:06 10/24/19 09:04 Senokot S PO 2 tab BID PRN Administration Constipation Tamsulosin HCl 0.4 mg 10/23/19 09:00 10/24/19 09:01 Flomax PO 0.4 mg DAILY HARJINDER Administration - Exam General Appearance: awake alert Neck: no JVD Heart: RRR, no murmur Respiratory: CTAB Gastrointestinal: soft, normal bowel sounds Extremities: 1+ LE edema Extremities - other findings: on right Hosp A/P (1) Pulmonary emboli Code(s): I26.99 - OTHER PULMONARY EMBOLISM WITHOUT ACUTE COR PULMONALE Status : Acute Qualifiers: Pulmonary embolism type: unspecified Chronicity: acute Acute cor pulmonale presence: without acute cor pulmonale Qualified Code(s): I26.99 - Other pulmonary embolism without acute cor pulmonale (2) DM type 2 (diabetes mellitus, type 2) Status: Chronic Qualifiers: 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
[2019-10-24] MEDS: HYDROcodone/Acetaminophen 5/325 mg Tablet PO PRN ×2 (12:17→20:25)
[2019-10-24] MEDS: Apixaban 5 MG TAB PO SCH (20:27)
[2019-10-25] MEDS: Morphine 2 MG/ML SYRINGE SLOW IVP PRN ×3 (03:03→21:24)
[2019-10-25] MEDS: Levothyroxine Sodium 100 MCG TAB PO SCH (03:59)
[2019-10-25] MEDS: HYDROcodone/Acetaminophen 10/325 mg Tablet PO PRN ×4 (03:59→18:14)
[2019-10-25] MEDS: Tamsulosin HCl 0.4 MG CAP PO SCH (08:00)
[2019-10-25] MEDS: Finasteride 5 MG TAB PO SCH (08:01)
[2019-10-25] MEDS: Oxybutynin 5 MG TAB PO SCH (08:01)
[2019-10-25] MEDS: Apixaban 5 MG TAB PO SCH ×2 (08:01→21:24)
[2019-10-25] MEDS: Lisinopril 2.5 MG TAB PO SCH (08:01)
[2019-10-25] MEDS: Famotidine 20 MG TAB PO SCH ×2 (08:01→21:24)
--- NOTE | 2019-10-25 10:04 | PRG ---
DATE OF SERVICE: 10/25/2019 SUBJECTIVE: He feels well except for his knee. He is having no shortness of breath. No bleeding. OBJECTIVE: VITAL SIGNS: Temperature is 97.9, pulse 89, respirations 22, O2 saturation 96% on room air. HEENT: Unremarkable. NECK: No adenopathy or JVD. LUNGS: Clear anteriorly. CARDIAC: S1 and S2, regular. ABDOMEN: Soft. EXTREMITIES: Right knee swelling. ASSESSMENT: Pulmonary embolism. PLAN: The patient was converted over to Eliquis yesterday. He needs to be on Eliquis 10 mg twice daily for 7 days, then 5 mg twice daily thereafter for the next 6 months. He can follow up in the office with me in about 6 months. Otherwise, follow up with primary care doctor. Job ID: [id number]
--- NOTE | 2019-10-25 10:52 | PDOC.HOSPP ---
- Subjective Encounter Date: 10/25/19 Encounter Time: 10:47 Subjective: Alert,minimalsob - Objective Vital Signs & Weight: Vital Signs (12 hours) Temp Pulse Resp BP Pulse Ox 10/25/19 08:01 96 10/25/19 07:34 97.9 F 89 22 H 150/75 H 96 10/25/19 03:18 98.2 F 86 17 135/70 96 Weight Weight 299 lb 13.259 oz I&O: 10/24/19 10/25/19 10/26/19 06:59 06:59 06:59 Intake Total 2400 2400 Output Total 2600 2400 Balance -200 0 Result Diagrams: 10/24/19 07:45 10/24/19 04:03 Additional Labs: Accuchecks 10/25/19 10/24/19 10/24/19 05:29 20:54 17:00 POC Glucose 110 157 H 147 H 10/24/19 10:31 POC Glucose 148 H Hospitalist ROS - Medication Medications: Active Medications Generic Name Dose Route Start Last Admin Trade Name Freq PRN Reason Stop Dose Admin Acetaminophen 650 mg 10/23/19 01:06 10/24/19 12:16 Tylenol PO 650 mg Q4H PRN Administration Headache/Fever/Mild Pain (1-3) Hydrocodone Bitart/Acetaminophen 1 tab 10/23/19 01:06 10/25/19 08:01 [place] 10/325 PO 1 tab Q4H PRN Administration Moderate Pain (4-6) Hydrocodone Bitart/Acetaminophen 1 tab 10/23/19 01:06 10/24/19 20:25 [place] 5/325 PO 1 tab Q4H PRN Administration Moderate Pain (4-6) Apixaban 10 mg 10/24/19 21:00 10/25/19 08:01 Eliquis PO 10 mg BID HARJINDER Administration Famotidine 20 mg 10/23/19 09:00 10/25/19 08:01 Pepcid PO 20 mg BID HARJINDER Administration Finasteride 5 mg 10/23/19 09:00 10/25/19 08:01 Proscar PO 5 mg DAILY HARJINDER Administration Levothyroxine Sodium 100 mcg 10/23/19 06:00 10/25/19 03:59 Synthroid PO 100 mcg 0600 HARJINDER Administration Lisinopril 2.5 mg 10/23/19 09:00 10/25/19 08:01 Zestril PO 2.5 mg DAILY HARJINDER Administration Morphine Sulfate 2 mg 10/23/19 01:06 10/25/19 10:00 Morphine SLOW IVP 2 mg Q4H PRN Administration Severe Pain (7-10) Oxybutynin Chloride 5 mg 10/23/19 09:00 10/25/19 08:01 Ditropan PO 5 mg DAILY HARJINDER Administration Senna/Docusate Sodium 2 tab 10/23/19 01:06 10/24/19 09:04 Senokot S PO 2 tab BID PRN Administration Constipation Sodium Chloride 10 ml 10/24/19 21:00 10/25/19 08:02 Flush - Normal Saline IVF 10 ml Q12HR HARJINDER Administration Tamsulosin HCl 0.4 mg 10/23/19 09:00 10/25/19 08:00 Flomax PO 0.4 mg DAILY HARJINDER Administration - Exam General Appearance: awake alert Neck: no JVD Heart: RRR, no murmur Respiratory: CTAB Gastrointestinal: soft, normal bowel sounds Extremities: 1+ LE edema Extremities - other findings: bandaged R knee Hosp A/P (1) Pulmonary emboli Code(s): I26.99 - OTHER PULMONARY EMBOLISM WITHOUT ACUTE COR PULMONALE Status : Acute Qualifiers: Pulmonary embolism type: unspecified Chronicity: acute Acute cor pulmonale presence: without acute cor pulmonale Qualified Code(s): I26.99 - Other pulmonary embolism without acute cor pulmonale (2) DM type 2 (diabetes mellitus, type 2) Status: Chronic Qualifiers: Diabetes mellitus buttermaker helper insulin use: without halfway use Diabetes mellitus complication status: without complication Qualified Code(s): E11.9 - Type 2 diabetes mellitus without complications (3) HTN (hypertension) Code(s): I10 - ESSENTIAL (PRIMARY) HYPERTENSION Status: Chronic Qualifiers: Hypertension type: essential hypertension Qualified Code(s): I10 - Essential (primary) hypertension - Plan cont eliquis rehab pending
[2019-10-26] MEDS: HYDROcodone/Acetaminophen 10/325 mg Tablet PO PRN ×3 (00:46→15:04)
[2019-10-26] MEDS: Morphine 2 MG/ML SYRINGE SLOW IVP PRN (03:40)
[2019-10-26] MEDS: Levothyroxine Sodium 100 MCG TAB PO SCH (05:11)
[2019-10-26 08:17] LABS: Hemoglobin 10.2 g/dL (14.0-18.0); Platelet Count 519 thou/uL (130-400)
[2019-10-26] MEDS: Apixaban 5 MG TAB PO SCH ×2 (08:29→22:12)
[2019-10-26] MEDS: Lisinopril 2.5 MG TAB PO SCH (08:29)
[2019-10-26] MEDS: Finasteride 5 MG TAB PO SCH (08:30)
[2019-10-26] MEDS: Famotidine 20 MG TAB PO SCH ×2 (08:30→22:12)
[2019-10-26] MEDS: Tamsulosin HCl 0.4 MG CAP PO SCH (08:30)
[2019-10-26] MEDS: Oxybutynin 5 MG TAB PO SCH (08:30)
--- NOTE | 2019-10-26 09:35 | PRG ---
DATE OF SERVICE: 10/26/2019 SUBJECTIVE: Mr. Menezes complaints primarily regard around pain in his legs. He is having no breathing issues. OBJECTIVE: VITAL SIGNS: His O2 sats 96% on room air, temperature 98.7, pulse 86, respirations 18, blood pressure 130/73. HEENT: Unremarkable. NECK: No adenopathy or JVD. LUNGS: Clear. ABDOMEN: Soft. EXTREMITIES: Right lower extremity edema present. ASSESSMENT: 1. Status post pulmonary embolism. 2. Poor pain control. PLAN: I will add some Toradol and see if that helps with his leg pain. He is on Eliquis, needs to remain on Eliquis for 6 months. Job ID: [id number]
[2019-10-26] MEDS: Ketorolac Tromethamine 10 MG TAB PO PRN ×2 (10:44→22:59)
--- NOTE | 2019-10-26 11:15 | PDOC.HOSPP ---
- Subjective Encounter Date: 10/26/19 Encounter Time: 11:14 Subjective: major complaint is continuing pain R knee and feeling of coldness R foor - Objective Vital Signs & Weight: Vital Signs (12 hours) Temp Pulse Resp BP BP Pulse Ox 10/26/19 08:11 98.7 F 86 18 138/73 96 10/26/19 04:01 99.2 F 86 19 133/75 93 L 10/26/19 00:10 97.6 F 92 16 139/75 Weight Weight 299 lb 13.259 oz I&O: 10/25/19 10/26/19 10/27/19 06:59 06:59 06:59 Intake Total 2400 2640 Output Total 2400 2675 Balance 0 -35 Result Diagrams: 10/26/19 07:46 10/24/19 04:03 Additional Labs: Accuchecks 10/26/19 10/26/19 10/25/19 10:49 05:10 20:52 POC Glucose 155 H 112 H 130 H 10/25/19 16:36 POC Glucose 111 H Hospitalist ROS - Medication Medications: Active Medications Generic Name Dose Route Start Last Admin Trade Name Freq PRN Reason Stop Dose Admin Acetaminophen 650 mg 10/23/19 01:06 10/24/19 12:16 Tylenol PO 650 mg Q4H PRN Administration Headache/Fever/Mild Pain (1-3) Hydrocodone Bitart/Acetaminophen 1 tab 10/23/19 01:06 10/26/19 08:30 [place] 10/325 PO 1 tab Q4H PRN Administration Moderate Pain (4-6) Hydrocodone Bitart/Acetaminophen 1 tab 10/23/19 01:06 10/24/19 20:25 [place] 5/325 PO 1 tab Q4H PRN Administration Moderate Pain (4-6) Apixaban 10 mg 10/24/19 21:00 10/26/19 08:29 Eliquis PO 10 mg BID HARJINDER Administration Famotidine 20 mg 10/23/19 09:00 10/26/19 08:30 Pepcid PO 20 mg BID HARJINDER Administration Finasteride 5 mg 10/23/19 09:00 10/26/19 08:30 Proscar PO 5 mg DAILY HARJINDER Administration Insulin Human Lispro 0 units 10/23/19 01:06 10/25/19 11:09 Humalog SC 2 unit .MODERATE SLIDING SC PRN Administration Moderate Correctional Scale Ketorolac Tromethamine 30 mg 10/26/19 09:21 10/26/19 10:44 Toradol PO 10/31/19 09:22 30 mg Q6H PRN Administration Pain Levothyroxine Sodium 100 mcg 10/23/19 06:00 10/26/19 05:11 Synthroid PO 100 mcg 0600 HARJINDER Administration Lisinopril 2.5 mg 10/23/19 09:00 10/26/19 08:29 Zestril PO 2.5 mg DAILY HARJINDER Administration Morphine Sulfate 2 mg 10/23/19 01:06 10/26/19 03:40 Morphine SLOW IVP 2 mg Q4H PRN Administration Severe Pain (7-10) Oxybutynin Chloride 5 mg 10/23/19 09:00 10/26/19 08:30 Ditropan PO 5 mg DAILY HARJINDER Administration Senna/Docusate Sodium 2 tab 10/23/19 01:06 10/24/19 09:04 Senokot S PO 2 tab BID PRN Administration Constipation Sodium Chloride 10 ml 10/24/19 21:00 10/26/19 08:32 Flush - Normal Saline IVF 10 ml Q12HR HARJINDER Administration Tamsulosin HCl 0.4 mg 10/23/19 09:00 10/26/19 08:30 Flomax PO 0.4 mg DAILY HARJINDER Administration - Exam General Appearance: awake alert Neck: no JVD Heart: RRR, no murmur Respiratory: CTAB Gastrointestinal: soft, normal bowel sounds Extremities: 1+ LE edema Extremities - other findings: bandaged R knee, etrong pedal pulses Hosp A/P (1) Pulmonary emboli Code(s): I26.99 - OTHER PULMONARY EMBOLISM WITHOUT ACUTE COR PULMONALE Status : Acute Qualifiers: Pulmonary embolism type: unspecified Chronicity: acute Acute cor pulmonale presence: without acute cor pulmonale Qualified Code(s): I26.99 - Other pulmonary embolism without acute cor pulmonale (2) DM type 2 (diabetes mellitus, type 2) Status: Chronic Qualifiers: Diabetes mellitus prison insulin use: without prison use Diabetes mellitus complication status: without complication Qualified Code(s): E11.9 - Type 2 diabetes mellitus without complications (3) HTN (hypertension) Code(s): I10 - ESSENTIAL (PRIMARY) HYPERTENSION Status: Chronic Qualifiers: Hypertension type: essential hypertension Qualified Code(s): I10 - Essential (primary) hypertension (4) Post-op pain Code(s): G89.18 - OTHER ACUTE POSTPROCEDURAL PAIN Status: Acute - Plan cont eliqu[facility] rehab pending continued pain in surgical site, neuropathy in foot call Dr Matthews- his surgeon
--- NOTE | 2019-10-26 15:58 | PDOC.EVN ---
Event Note - Event Note Event Note: with ortho-add fentayl patch
[2019-10-26] MEDS ORDERED: fentaNYL 50 mcg/hour Patch TD SCH (16:00)
[2019-10-27] MEDS: Senokot S 8.6-50 MG TAB PO PRN (00:43)
[2019-10-27] MEDS: HYDROcodone/Acetaminophen 10/325 mg Tablet PO PRN ×3 (02:28→12:55)
[2019-10-27] MEDS: Levothyroxine Sodium 100 MCG TAB PO SCH (06:16)
[2019-10-27] MEDS: Ketorolac Tromethamine 10 MG TAB PO PRN ×2 (06:32→16:31)
[2019-10-27] MEDS: Apixaban 5 MG TAB PO SCH (08:49)
[2019-10-27] MEDS: Famotidine 20 MG TAB PO SCH (08:50)
[2019-10-27] MEDS: Finasteride 5 MG TAB PO SCH (08:50)
[2019-10-27] MEDS: Lisinopril 2.5 MG TAB PO SCH (08:50)
[2019-10-27] MEDS: Tamsulosin HCl 0.4 MG CAP PO SCH (08:50)
[2019-10-27] MEDS: Oxybutynin 5 MG TAB PO SCH (08:50)
--- NOTE | 2019-10-27 11:54 | PRG ---
DATE OF SERVICE: 10/27/2019 SUBJECTIVE: The patient was started on a fentanyl patch yesterday, states that his pain has gone from severe to tolerable. He is out of bed, sitting in a chair. He does complain of inability to sleep in the hospital bed. He is scheduled to be discharged possibly later today to rehab. OBJECTIVE: VITAL SIGNS: The patient has been afebrile. Vital signs have been stable. EXTREMITIES: The patient has usual amount of swelling around the right knee. The incision is healing well. He has good peripheral pulses in his foot and ankle and his foot is very warm, although the patient tells me that his foot feels cold. LABORATORY DATA: Hemoglobin yesterday was 10.2 and hematocrit 32. His glucose has been in the low 100s. IMPRESSION: I discussed with the patient that he may be having an early form of what used to be called reflex sympathetic dystrophy, now it is chronic regional pain syndrome. The fentanyl is a good idea. The patient will continue with the fentanyl patch. May want to consider either Lyrica or Neurontin at night to help with possible chronic regional pain syndrome. Hopefully, he will be going to rehab later today. Job ID: [id number]
--- NOTE | 2019-10-27 16:02 | PDOC.HOSPP ---
- Subjective Encounter Date: 10/27/19 Encounter Time: 16:00 Subjective: much better with addition of fentanyl patch - Objective Vital Signs & Weight: Vital Signs (12 hours) Temp Pulse Resp BP Pulse Ox 10/27/19 11:35 98.3 F 85 18 122/59 L 96 10/27/19 07:45 98.1 F 80 18 131/62 96 Weight Weight 299 lb 13.259 oz I&O: 10/26/19 10/27/19 10/28/19 06:59 06:59 06:59 Intake Total 2640 1590 Output Total 2675 600 Balance -35 990 Result Diagrams: 10/26/19 07:46 10/24/19 04:03 Additional Labs: Accuchecks 10/27/19 10/27/19 10/26/19 11:44 05:59 20:26 POC Glucose 108 101 103 10/26/19 16:37 POC Glucose 99 Hospitalist ROS - Medication Medications: Active Medications Generic Name Dose Route Start Last Admin Trade Name Freq PRN Reason Stop Dose Admin Acetaminophen 650 mg 10/23/19 01:06 10/24/19 12:16 Tylenol PO 650 mg Q4H PRN Administration Headache/Fever/Mild Pain (1-3) Hydrocodone Bitart/Acetaminophen 1 tab 10/23/19 01:06 10/27/19 12:55 [place] 10/325 PO 1 tab Q4H PRN Administration Moderate Pain (4-6) Hydrocodone Bitart/Acetaminophen 1 tab 10/23/19 01:06 10/24/19 20:25 [place] 5/325 PO 1 tab Q4H PRN Administration Moderate Pain (4-6) Apixaban 10 mg 10/24/19 21:00 10/27/19 08:49 Eliquis PO 10 mg BID HARJINDER Administration Famotidine 20 mg 10/23/19 09:00 10/27/19 08:50 Pepcid PO 20 mg BID HARJINDER Administration Fentanyl 50 mcg 10/26/19 16:00 10/26/19 17:45 Duragesic TD 50 mcg Q3D HARJINDER Administration Finasteride 5 mg 10/23/19 09:00 10/27/19 08:50 Proscar PO 5 mg DAILY HARJINDER Administration Insulin Human Lispro 0 units 10/23/19 01:06 10/25/19 11:09 Humalog SC 2 unit .MODERATE SLIDING SC PRN Administration Moderate Correctional Scale Ketorolac Tromethamine 30 mg 10/26/19 09:21 10/27/19 06:32 Toradol PO 10/31/19 09:22 30 mg Q6H PRN Administration Pain Levothyroxine Sodium 100 mcg 10/23/19 06:00 10/27/19 06:16 Synthroid PO 100 mcg 0600 HARJINDER Administration Lisinopril 2.5 mg 10/23/19 09:00 10/27/19 08:50 Zestril PO 2.5 mg DAILY HARJINDER Administration Morphine Sulfate 2 mg 10/23/19 01:06 10/26/19 03:40 Morphine SLOW IVP 2 mg Q4H PRN Administration Severe Pain (7-10) Oxybutynin Chloride 5 mg 10/23/19 09:00 10/27/19 08:50 Ditropan PO 5 mg DAILY HARJINDER Administration Senna/Docusate Sodium 2 tab 10/23/19 01:06 10/27/19 00:43 Senokot S PO 2 tab BID PRN Administration Constipation Sodium Chloride 10 ml 10/24/19 21:00 10/27/19 08:50 Flush - Normal Saline IVF 10 ml Q12HR HARJINDER Administration Tamsulosin HCl 0.4 mg 10/23/19 09:00 10/27/19 08:50 Flomax PO 0.4 mg DAILY HARJINDER Administration - Exam General Appearance: awake alert Neck: no JVD Heart: RRR, no murmur Respiratory: CTAB Gastrointestinal: soft, normal bowel sounds Extremities: no edema Hosp A/P (1) Pulmonary emboli Code(s): I26.99 - OTHER PULMONARY EMBOLISM WITHOUT ACUTE COR PULMONALE Status : Acute Qualifiers: Pulmonary embolism type: unspecified Chronicity: acute Acute cor pulmonale presence: without acute cor pulmonale Qualified Code(s): I26.99 - Other pulmonary embolism without acute cor pulmonale (2) DM type 2 (diabetes mellitus, type 2) Status: Chronic Qualifiers: Diabetes mellitus continuous churn buttermaker insulin use: without longterm use Diabetes mellitus complication status: without complication Qualified Code(s): E11.9 - Type 2 diabetes mellitus without complications (3) HTN (hypertension) Code(s): I10 - ESSENTIAL (PRIMARY) HYPERTENSION Status: Chronic Qualifiers: Hypertension type: essential hypertension Qualified Code(s): I10 - Essential (primary) hypertension (4) Post-op pain Code(s): G89.18 - OTHER ACUTE POSTPROCEDURAL PAIN Status: Acute - Plan cont eliquis rehab pending continued pain in surgical site, neuropathy in foot Dr Matthews suspects chronic regional pain syndrome, may need gabapentin or lyrica
[2019-10-27 16:42] VITALS: BP 132/74; TEMP 98.1
--- NOTE | 2019-10-27 17:25 | DIS ---
DATE OF ADMISSION: 10/22/2019 DATE OF DISCHARGE: 10/27/2019 PRIMARY CARE PROVIDER: Out of town. Listed in the discharge summary is Dr. Momo Tejada. DISCHARGE DIAGNOSES: Acute pulmonary emboli, hypertension, hypothyroidism, benign prostatic hypertrophy with prostatism, anticoagulation, dyslipidemia. DISCHARGE MEDICINES: New prescriptions written; 1. Eliquis 10 mg p.o. twice a day. Prescriptions not written; 1. Hydrocodone 10/325 one every 4 hours p.r.n. pain. 2. Fentanyl, Duragesic patch 50 mcg change every three days. These two prescriptions, he will be going to Dr. 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 Routine medicines, he is continued; 1. Synthroid 100 mcg a day. 2. Lisinopril 2.5 mg a day. 3. Allopurinol 100 mg a day. 4. Lipitor 40 mg a day. 5. Proscar 5 mg a day. 6. Oxybutynin 5 mg a day. 7. Flomax 0.4 mg a day. ALLERGIES: NO KNOWN DRUG ALLERGIES. DIET: Heart healthy. PENDING AT TIME OF DISCHARGE: Nothing. CODE STATUS: Full. HOSPITAL COURSE: The patient admitted to [facility] through [facility] with acute pulmonary embolus. The patient has had a right total knee replacement at the [facility] on the 11 of October. He had been doing well. He developed increasing pain in his leg, developed shortness of breath. Came to the emergency room, where a pulmonary embolus was diagnosed by CT angiogram. Consultations, Dr. Kofi Rea on 10/23/[address] Matthews. Dr. Matthews subsequently saw him. On 10/23/2019, Dr. Brannon Rosenberg saw him in consultation. The patient was placed on anticoagulants, Lovenox therapeutic dose. His initial laboratory; white count 10.9, hemoglobin 10.0, platelet count 535,000. On 10/26, his hemoglobin was 10.2 and platelet count was 519,000. His D-dimer which led to the CT was 14. Electrolytes were unremarkable except for a sodium of 133. Cardiac enzymes were done, which were normal. The patient received Lovenox until 10/24/2019, when he was transitioned to Eliquis 10 mg twice a day. The patient had severe pain and a feeling of coldness in his foot, eventually seen again by Dr. Matthews, who diagnosed chronic regional pain syndrome. However, since the patient had improved, at that point, it was decided not to add further medicines. It is possible that if he persists in having more pain than it can be controlled with his pain medicines, he will need additional medication with either Lyrica or gabapentin. At time of discharge, his vital signs were stable. His oxygenation is 96% on room air. Cardiorespiratory exam is normal. His wound is clean. Attempts were made to get him into rehab at his request, but so far no bed has been available and he is now electing to go home on outpatient rehab. He is to see Dr. Matthews tomorrow for his pain medication prescriptions. He has been advised to see his PCP in 3 days about his Eliquis. Job ID: [id number]
--- NOTE | 2019-10-28 02:30 | PQF ---
SEB AR[place], [place] Charles DOWNING [phone] [facility]292 [id number] CLINICAL DOCUMENTATION CLARIFICATION FORM: POST DISCHARGE Addendum to original discharge summary date: ____ Late entry note date: __ DATE:10/28/2019 ATTN: Dr Galicia, [place] Please exercise your independent, professional judgment in responding to the clarification form. Clinical indicators are provided on the bottom of this form for your review Please check appropriate box(s): [ ] Acute Pulmonary Embolism is a postoperative complication of TKA [ ] Acute Pulmonary Embolism is not a postoperative complication of TKA [ ] Other diagnosis [ ] Unable to determine In addition, please specify: Present on Admission (POA): [ ] Yes [ ] No [ ] Unable to determine CLINICAL INDICATORS - SIGNS / SYMPTOMS / LABS H&P p1 10/22 Dr Case The patient hx of having right TKR done on the of this month. He went home on the and ambulating well. H&P p1 10/22 Dr Case From last 2 days, the pain in the right knee has increased. H&P p1 10/22 Dr Case he has felt a little short of breath H&P p1 10/22 Dr Case his entire right lower extremity is also swollen from last 2 days, which has been progressively getting worse per patient H&P p3 10/22 Dr Case His right lower extremity is swollen, likely has proximal deep vein thrombosis, which might have gone to his lungs, although his ultrasound venous Doppler is negative RISK FACTORS H&P p1 10/22 - s/p Right total knee replacement H&P p1 10/22 history of Hypertension H&P p1 10/22 history of diet-controlled diabetes H&P 10/22 Pulmonary embolus TREATMENT: NOV 26 Lovenox H&P 10/22 - switched over to Eliquis or Xarelto once pulmonary consultation has been obtained H&P p3 10/22 - pain management Pulmonary Consult 10/23 Brannon Rodriguez (This form is maintained as a part of the permanent medical record) 2014 [employer]. All Rights Reserved [email or web address]
== END 2019-10-27 18:47 | disposition home or self-care (01) | DRG 176 ==
LOC: ERS 16:03 → 2NO 22:59
PROVIDERS: ADMIT Internal Medicine; ATTEND Internal Medicine
DX: I26.99 Other pulmonary embolism without acute cor pulmonale (principal); E87.1 Hypo-osmolality and hyponatremia; E03.9 Hypothyroidism, unspecified; N40.0 Benign prostatic hyperplasia without lower urinary tract symptoms; E78.5 Hyperlipidemia, unspecified; Z96.651 Presence of right artificial knee joint; E87.8 Other disorders of electrolyte and fluid balance, not elsewhere classified; Z96.642 Presence of left artificial hip joint; E11.9 Type 2 diabetes mellitus without complications; Z79.01 Long term (current) use of anticoagulants; Z79.899 Other long term (current) drug therapy; Z79.82 Long term (current) use of aspirin; Z79.890 Hormone replacement therapy
CPT/HCPCS: 36415; 36416; 71275; 80048; 80053; 83880; 84484; 85014; 85018; 85025; 85049; 85379; 85652; 86140; 93306; 96365; 96367; 96372; 96375; 96376; J0696; J1650; J1885; J2270; J2405; J3370; Q9967

== ENCOUNTER 2019-11-08 11:41 | Emergency (ER) | payer MEDICARE ==
--- NOTE | 2019-11-08 12:22 | ULT ---
EXAM: Right lower extremity venous ultrasound HISTORY: Right lower extremity pain and edema COMPARISON: None TECHNIQUE: Multiplanar grayscale and color Doppler images were obtained in a right lower extremity ve nous ultrasound. Spectral analysis of the Doppler waveforms were performed. FINDINGS: The common femoral vein, profunda femoral vein, superficial femoral vein, and popliteal vei n are normal in appearance without visible thrombus. These vessels demonstrate normal compression, flow, and augmentation. The posterior tibial vein and greater saphenous vein are patent without evidence of thrombus. IMPRESSION: No evidence of DVT.
[2019-11-08] MEDS ORDERED: Morphine 4 MG/ML VIAL ONE (12:58)
[2019-11-08 13:16] LABS: #Basophils 0.1 thou/uL (0.0-0.2); #Eosinphils 0.2 thou/uL (0.0-0.7); #Lymphocytes 1.4 thou/uL (1.20-3.40); #Monocytes 0.4 thou/uL (0.11-0.59); #Neutrophils 4.2 thou/uL (1.40-6.50); %Basophils 0.9 % (0.0-1.0); %Eosinophils 3.4 % (0.0-10.0); %Lymphocytes 21.7 % (21.0-51.0); %Monocytes 6.8 % (0.0-10.0); %Neutrophils 67.2 % (42.0-75.0); Hemoglobin 10.5 g/dL (14.0-18.0); Mean Corpuscular HGB CONC 30.6 g/dL (32.0-36.0); Mean Corpuscular Hemoglobin 26.5 pg (27.0-31.0); Mean Corpuscular Volume 86.6 fL (78.0-98.0); Mean Platelet Volume 7.3 fL (7.4-10.4); Platelet Count 310 thou/uL (130-400); RBC Distribution Width 14.1 % (11.5-14.5); Red Blood Cell (RBC) Count 3.96 mill/uL (4.70-6.10); White Blood Cell (WBC) Count 6.2 thou/uL (4.8-10.8)
[2019-11-08 13:38] LABS: ALT (SGPT) 16 U/L (8-55); AST (SGOT) 13 U/L (5-34); Albumin 3.8 g/dL (3.4-4.8); Alkaline Phosphatase 93 U/L (40-110); Anion Gap 11 mmol/L (10-20); BUN (Urea Nitrogen) 17 mg/dL (8.4-25.7); Bilirubin, Total 0.3 mg/dL (0.2-1.2); Calc. Creatinine Clearance 0 mL/min (70-130); Calcium 9.2 mg/dL (7.8-10.44); Carbon Dioxide 26 mmol/L (23-31); Chloride 102 mmol/L (98-107); Estimated GFR-MDRD 74; Globulin 3.2 g/dL (2.4-3.5); Glucose 156 mg/dL (80-115); Potassium 4.2 mmol/L (3.5-5.1); Sodium 135 mmol/L (136-145)
== END 2019-11-08 14:10 | disposition home or self-care (01) ==
LOC: ERS 11:41
DX: G89.18 Other acute postprocedural pain (principal); M25.561 Pain in right knee; I10 Essential (primary) hypertension; E03.9 Hypothyroidism, unspecified; E11.9 Type 2 diabetes mellitus without complications; N40.0 Benign prostatic hyperplasia without lower urinary tract symptoms
CPT/HCPCS: 36415; 80053; 83605; 85025; 96372; J2270

== ENCOUNTER 2020-02-02 16:38 | Emergency (ER) | payer MEDICARE ==
[2020-02-02 17:30] LABS: #Basophils 0.1 thou/uL (0.0-0.2); #Eosinphils 0.3 thou/uL (0.0-0.7); #Monocytes 0.7 thou/uL (0.11-0.59); %Basophils 0.7 % (0.0-1.0); %Eosinophils 4.2 % (0.0-10.0); %Lymphocytes 24.9 % (21.0-51.0); %Monocytes 8.8 % (0.0-10.0); %Neutrophils 61.5 % (42.0-75.0); Hemoglobin 11.8 g/dL (14.0-18.0); Mean Corpuscular HGB CONC 31.6 g/dL (32.0-36.0); Mean Corpuscular Hemoglobin 26.4 pg (27.0-31.0); Mean Corpuscular Volume 83.6 fL (78.0-98.0); Mean Platelet Volume 8.1 fL (7.4-10.4); Platelet Count 240 thou/uL (130-400); RBC Distribution Width 14.5 % (11.5-14.5); Red Blood Cell (RBC) Count 4.49 mill/uL (4.70-6.10); White Blood Cell (WBC) Count 8.1 thou/uL (4.8-10.8)
[2020-02-02 17:42] LABS: INR-International Normal Ratio 1.6; Prothrombin Time 19.1 sec (12.0-14.7)
[2020-02-02 17:56] LABS: ALT (SGPT) 44 U/L (8-55); AST (SGOT) 25 U/L (5-34); Albumin 4.2 g/dL (3.4-4.8); Alkaline Phosphatase 61 U/L (40-110); Anion Gap 11 mmol/L (10-20); BUN (Urea Nitrogen) 15 mg/dL (8.4-25.7); Bilirubin, Total 0.2 mg/dL (0.2-1.2); Calc. Creatinine Clearance 0 mL/min (70-130); Calcium 9.1 mg/dL (7.8-10.44); Carbon Dioxide 25 mmol/L (23-31); Chloride 102 mmol/L (98-107); Estimated GFR-MDRD 82; Globulin 2.7 g/dL (2.4-3.5); Glucose 80 mg/dL (80-115); Potassium 3.8 mmol/L (3.5-5.1); Protein, Total 6.9 g/dL (5.8-8.1); Sodium 134 mmol/L (136-145)
--- NOTE | 2020-02-02 18:19 | ULT ---
ULTRASOUND RIGHT LOWER EXTREMITY VENOUS DOPPLER: 02/02/20 HISTORY: Swelling, pain. COMPARISON: None. FINDINGS: Real time sanchez scale, color Doppler and spectral analysis right lower extremity venous system was per formed. Common femoral, femoral, proximal portion of the greater saphenous and deep femoral veins as well as the popliteal and posterior tibial veins were interrogated. Normal flow, augmentation, and compression. The area of interest in the lower leg appears to be a hem atoma within the superficial soft tissues with a fluid hematocrit level. IMPRESSION: No deep venous thrombosis. Large round, what appears to be a hematoma measuring up to 10 cm in size. A follow-up MRI noncontrast recommended if there is no history of trauma nor if this does not improve within two weeks. POS: HOME
[2020-02-02] MEDS ORDERED: Morphine 4 MG/ML VIAL ONE (18:52)
[2020-02-02] MEDS ORDERED: HYDROcodone/Acetaminophen 10/325 mg Tablet ONE (20:11)
== END 2020-02-02 20:24 | disposition home or self-care (01) ==
LOC: ERS 16:38
DX: M96.840 Postprocedural hematoma of a musculoskeletal structure following a musculoskeletal system procedure (principal); E03.9 Hypothyroidism, unspecified; I10 Essential (primary) hypertension; E11.9 Type 2 diabetes mellitus without complications; Z79.899 Other long term (current) drug therapy
CPT/HCPCS: 36415; 80053; 85025; 85610; 85730; 96372; J2270

== ENCOUNTER 2020-02-06 12:13 | Emergency (ER) | payer MEDICARE ==
[2020-02-06] MEDS ORDERED: Morphine 4 MG/ML VIAL ONE ×2 (13:07→16:25)
[2020-02-06 13:47] LABS: #Basophils 0.1 thou/uL (0.0-0.2); #Eosinphils 0.3 thou/uL (0.0-0.7); #Lymphocytes 1.4 thou/uL (1.20-3.40); #Monocytes 0.6 thou/uL (0.11-0.59); #Neutrophils 4.3 thou/uL (1.40-6.50); %Basophils 1.1 % (0.0-1.0); %Eosinophils 4.7 % (0.0-10.0); %Lymphocytes 21.1 % (21.0-51.0); %Monocytes 9.1 % (0.0-10.0); Hemoglobin 11.2 g/dL (14.0-18.0); Mean Corpuscular HGB CONC 32.3 g/dL (32.0-36.0); Mean Corpuscular Hemoglobin 27.4 pg (27.0-31.0); Mean Corpuscular Volume 84.7 fL (78.0-98.0); Mean Platelet Volume 8.1 fL (7.4-10.4); Platelet Count 240 thou/uL (130-400); RBC Distribution Width 14.4 % (11.5-14.5); Red Blood Cell (RBC) Count 4.09 mill/uL (4.70-6.10); White Blood Cell (WBC) Count 6.8 thou/uL (4.8-10.8)
[2020-02-06 13:49] LABS: INR-International Normal Ratio 2.4; Prothrombin Time 26.2 sec (12.0-14.7)
[2020-02-06 14:12] LABS: ALT (SGPT) 28 U/L (8-55); AST (SGOT) 18 U/L (5-34); Albumin 3.9 g/dL (3.4-4.8); Alkaline Phosphatase 58 U/L (40-110); Anion Gap 11 mmol/L (10-20); BUN (Urea Nitrogen) 12 mg/dL (8.4-25.7); Bilirubin, Total Less than 0.2 mg/dL (0.2-1.2); Calc. Creatinine Clearance 0 mL/min (70-130); Calcium 9.1 mg/dL (7.8-10.44); Carbon Dioxide 28 mmol/L (23-31); Chloride 101 mmol/L (98-107); Estimated GFR-MDRD Greater than 90; Glucose 109 mg/dL (80-115); Potassium 3.8 mmol/L (3.5-5.1); Protein, Total 6.9 g/dL (5.8-8.1); Sodium 136 mmol/L (136-145)
--- NOTE | 2020-02-06 14:28 | ULT ---
ULTRASOUND RIGHT LOWER EXTREMITY VENOUS DOPPLER: History: Lower extremity pain and swelling. Comparison: 02-02-2020 FINDINGS: Grayscale, color, and spectral analysis of the right lower extremity venous system was performed. The common femoral, femoral, and portions of the greater saphenous of the femoral veins as well as the p opliteal and posterior tibial veins were interrogated. There is normal flow, augmentation and compression. In the region of interest is a large hypoechoic m ass measuring 15 cm in size. This appears to be more solid than on the previous exam. IMPRESSION: 1. No deep venous thrombosis. 2. Mass measuring up to 15 cm in size in the region of interest of the posterior calf. MRI with and w ithout contrast recommended to evaluate for malignant process, although, hematoma is still favored at this point as it was not present on the 11-08-2019 exam. POS: ED[facility]INDI
== END 2020-02-06 16:30 | disposition home or self-care (01) ==
LOC: ERS 12:13
DX: S80.11XA Contusion of right lower leg, initial encounter (principal); M79.89 Other specified soft tissue disorders; I10 Essential (primary) hypertension; E03.9 Hypothyroidism, unspecified; E11.9 Type 2 diabetes mellitus without complications; X58.XXXA Exposure to other specified factors, initial encounter
CPT/HCPCS: 36415; 80053; 85025; 85610; 96372; 96374; J2270

== ENCOUNTER 2021-03-21 14:03 | Emergency (ER) | payer MEDICARE | END 2021-03-21 15:06 | disposition left against medical advice (07) | LOC: ERS 14:03 | DX: Z53.21 Procedure and treatment not carried out due to patient leaving prior to being seen by health care provider (principal) ==

== ENCOUNTER 2021-03-23 01:50 | Emergency (ER) | payer MEDICARE ==
[2021-03-23 02:43] LABS: #Basophils 0.1 thou/uL (0.0-0.2); #Eosinphils 0.4 thou/uL (0.0-0.7); #Lymphocytes 4.1 thou/uL (1.20-3.40); #Neutrophils 4.7 thou/uL (1.40-6.50); %Basophils 1.2 % (0.0-1.0); %Lymphocytes 39.8 % (21.0-51.0); %Monocytes 9.9 % (0.0-10.0); %Neutrophils 45.1 % (42.0-75.0); Hemoglobin 14.9 g/dL (14.0-18.0); Mean Corpuscular HGB CONC 31.7 g/dL (32.0-36.0); Mean Corpuscular Hemoglobin 27.9 pg (27.0-31.0); Mean Corpuscular Volume 87.9 fL (78.0-98.0); Mean Platelet Volume 8.4 fL (7.4-10.4); Platelet Count 227 thou/uL (130-400); RBC Distribution Width 12.9 % (11.5-14.5); Red Blood Cell (RBC) Count 5.34 mill/uL (4.70-6.10); White Blood Cell (WBC) Count 10.4 thou/uL (4.8-10.8)
[2021-03-23 03:01] LABS: ALT (SGPT) 23 U/L (8-55); AST (SGOT) 20 U/L (5-34); Albumin 4.2 g/dL (3.4-4.8); Alkaline Phosphatase 96 U/L (40-110); Anion Gap 15 mmol/L (10-20); BUN (Urea Nitrogen) 20 mg/dL (8.4-25.7); Bilirubin, Total Less than 0.2 mg/dL (0.2-1.2); Calc. Creatinine Clearance 0 mL/min (70-130); Calcium 9.1 mg/dL (7.8-10.44); Carbon Dioxide 24 mmol/L (23-31); Chloride 103 mmol/L (98-107); Globulin 3.3 g/dL (2.4-3.5); Glucose 79 mg/dL (80-115); Potassium 3.6 mmol/L (3.5-5.1); Protein, Total 7.5 g/dL (5.8-8.1); Sodium 138 mmol/L (136-145)
[2021-03-23] MEDS ORDERED: Ketorolac Tromethamine 30 MG/ML VIAL ONE (04:40)
== END 2021-03-23 04:57 | disposition home or self-care (01) ==
LOC: ERS 01:50
DX: R53.1 Weakness (principal); R53.81 Other malaise; R06.00 Dyspnea, unspecified; I10 Essential (primary) hypertension; E03.9 Hypothyroidism, unspecified; N40.0 Benign prostatic hyperplasia without lower urinary tract symptoms; Z79.899 Other long term (current) drug therapy
CPT/HCPCS: 36415; 71045; 80053; 84484; 85025; 93005; 96372; J1885

== ENCOUNTER 2021-10-14 13:51 | Emergency (ER) | payer OTHER, MEDICARE ==
[2021-10-14] MEDS ORDERED: Ketorolac Tromethamine 30 MG/ML VIAL ONE (16:03)
== END 2021-10-14 16:11 | disposition home or self-care (01) ==
LOC: ERS 13:51
DX: S70.02XA Contusion of left hip, initial encounter (principal); I10 Essential (primary) hypertension; E03.9 Hypothyroidism, unspecified; N40.0 Benign prostatic hyperplasia without lower urinary tract symptoms; Z79.899 Other long term (current) drug therapy; W01.0XXA Fall on same level from slipping, tripping and stumbling without subsequent striking against object, initial encounter
CPT/HCPCS: 96372; J1885

== ENCOUNTER 2024-10-01 15:08 | Emergency (ER) | payer MEDICARE, OTHER | END 2024-10-01 18:00 | disposition home or self-care (01) | LOC: ERS 15:08 | DX: J01.90 Acute sinusitis, unspecified (principal); I10 Essential (primary) hypertension; E03.9 Hypothyroidism, unspecified; Z79.890 Hormone replacement therapy; Z79.899 Other long term (current) drug therapy | CPT/HCPCS: 71046; 87428 ==

== ENCOUNTER 2025-06-06 02:01 | Emergency (ER) | payer MEDICARE, OTHER ==
[2025-06-06] MEDS ORDERED: Ketorolac Tromethamine 30 MG (1 mL) VIAL ONE (03:45)
[2025-06-06] MEDS ORDERED: Methocarbamol 500 MG TAB ONE (03:56)
[2025-06-06 04:16] LABS: ALT (SGPT) 19 U/L (Less than 45); AST (SGOT) 22 U/L (11-34); Albumin 3.8 g/dL (3.1-4.5); Alkaline Phosphatase 83 U/L (40-110); Anion Gap 11 mmol/L (10-20); BUN (Urea Nitrogen) 16 mg/dL (8.4-25.7); Bilirubin, Total 0.3 mg/dL (0.3-1.2); Calc. Creatinine Clearance 0 mL/min (70-130); Calcium 8.7 mg/dL (7.8-10.44); Carbon Dioxide 24 mmol/L (23-31); Chloride 102 mmol/L (98-107); Globulin 2.8 g/dL (2.4-3.5); Glucose 96 mg/dL (83-110); Lipase 21 U/L (8-78); Magnesium 2.0 mg/dL (1.6-2.6); Potassium 3.7 mmol/L (3.5-5.1); Sodium 133 mmol/L (136-145)
[2025-06-06 04:22] LABS: Hematocrit 41.5 % (42.0-52.0); Hemoglobin 13.3 g/dL (14.0-18.0); Mean Corpuscular Hemoglobin 26.9 pg (27.0-31.0); Mean Corpuscular Volume 84.0 fL (78.0-98.0); Platelet Count 207 10x3/uL (130-400); Red Blood Cell (RBC) Count 4.94 mill/uL (4.70-6.10); White Blood Cell (WBC) Count 7.69 10x3/uL (4.8-10.8)
[2025-06-06 04:47] LABS: Bacteria/HPF None Seen HPF (None Seen); CAUTI Indications for Culture Pelvic or flank pain; Glucose, Urine (Dipstick) Normal (Negative); Leukocyte Negative Leu/uL (Negative); Protein, Urine (Dipstick) Negative (Neg-Trace); RBC/HPF None Seen HPF (0-3); Specific Gravity, Urine 1.016 (1.002-1.036); WBC/HPF 0-3 HPF (0-3)
[2025-06-06 05:03] LABS: Burr Cells SLIGHT = 2-5 cells HPF (0-1); Platelet Adequacy Comment Platelets Normal; Smudge Cells 11.0 %
[2025-06-06 05:53] LABS: Urine Culture Reflex No No
== END 2025-06-06 05:38 | disposition home or self-care (01) ==
LOC: ERS 02:01
DX: K63.89 Other specified diseases of intestine (principal); M54.50 Low back pain, unspecified; I10 Essential (primary) hypertension; Z55.6 Problems related to health literacy
CPT/HCPCS: 71045; 74176; 80053; 81001; 83690; 83735; 84484; 85025; 85379; 93005; J1885; 96374

== ENCOUNTER 2025-08-30 13:34 | Emergency (ER) | payer OTHER ==
[2025-08-30 15:33] LABS: Bacteria/HPF None Seen HPF (None Seen); CAUTI Indications for Culture Dysuria,urgency,freq; Glucose, Urine (Dipstick) Normal (Negative); Leukocyte Negative Leu/uL (Negative); Protein, Urine (Dipstick) Negative (Neg-Trace); RBC/HPF None Seen HPF (0-3); Specific Gravity, Urine 1.008 (1.002-1.036); WBC/HPF None Seen HPF (0-3)
[2025-08-30 15:37] LABS: Urine Culture Reflex No No
== END 2025-08-30 16:31 | disposition home or self-care (01) ==
LOC: ERS 13:34
DX: M54.6 Pain in thoracic spine (principal); I10 Essential (primary) hypertension; E03.9 Hypothyroidism, unspecified; Z79.899 Other long term (current) drug therapy; Z79.890 Hormone replacement therapy
CPT/HCPCS: 81001; 96372; 99283